=== PATIENT | male | born 1990 | race African-American/Black ===

== ENCOUNTER 2022-01-29 04:32 | Inpatient (IN) | payer OTHER, SELFPAY ==
[2022-01-29] VITALS (11 sets, daily range): BP systolic 150–190; BP diastolic 71–122; PULSE 53–91; RESP 12–21; TEMP 36.1–37.3; O2SAT 96–100; BMI 37.0
--- NOTE | ~2022-01-29 | CT_ITS ---
EXAMINATION: CT ABDOMEN AND PELVIS WITH CONTRAST CLINICAL INFORMATION: Abdominal pain. EtOH. COMPARISON: CT abdomen pelvis 09/18/2018 TECHNIQUE: Multidetector volumetric images were obtained from the superior aspect of the liver through the pubic symphysis following administration 100 mL of Omnipaque 350 intravenous contrast. Sagittal and coronal reformatted images were obtained on the technologist's workstation. Oral contrast: No This CT examination was performed using dose optimization techniques as appropriate, variously including the following: *Automated exposure control *Adjustment of mA and/or kV according to patient size (this includes techniques or standardized protocols for targeted exams where dose is matched to indication/reason for exam; i.e. extremities or head) *Use of iterative reconstruction technique DLP: 827 mGy-cm FINDINGS: LUNG BASES: The visualized lung bases are unremarkable. LIVER, GALLBLADDER, AND BILIARY TREE: The liver is normal in size, shape, and attenuation. No focal hepatic lesion or biliary ductal dilatation is present. The gallbladder is unremarkable with no evidence of radiopaque gallstones, gallbladder wall thickening, or obvious pericholecystic inflammatory changes. PANCREAS: Diffuse concentric peripancreatic reticulation consistent with acute inflammatory changes is noted with findings extending into the root of the small bowel mesentery. The splenic vein is patent. No discrete peripancreatic fluid collections noted. No pancreatic hemorrhage identified. No dilatation of the main pancreatic duct. Edematous changes extend into the superior margin of the left anterior pararenal space. SPLEEN: Unremarkable. ADRENAL GLANDS: Unremarkable. KIDNEYS AND URETERS: The kidneys are normal in size, shape, and attenuation. No hydronephrosis, hydroureter, or calculi seen. No perinephric stranding. BLADDER: Partially decompressed. No thickening of the urinary bladder is present but is within expected physiologic limits for a contracted urinary bladder. GASTROINTESTINAL TRACT: Mild colonic diverticulosis. Normal appendix. No free intraperitoneal fluid or gas collections. ABDOMINAL WALL: No significant hernia is appreciated. LYMPH NODES: Normal. VASCULAR: Unremarkable. PELVIC VISCERA: Normal appearance of the prostate. OSSEOUS STRUCTURES: Unremarkable. CT/CT abdomen pelvis w IV con IMPRESSION: *Pancreatitis. Diffuse inflammatory changes of the pancreas are present with concentric surrounding peripancreatic inflammatory changes with peripancreatic inflammation extending into the root of the small bowel mesentery and proximal left anterior pararenal space. No evidence of pancreatic hemorrhage or necrosis. No discrete peripancreatic fluid collections. No biliary duct dilatation. Patent portal and main portal veins. *Mild colonic diverticulosis. Fleischner guidelines were followed.
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
[2022-01-29 05:18] LABS: Basophils Percent Auto 0.4 % (0-2); Eosinophils Absolute Auto 0.1 X10*3/uL (0.0-0.4); Eosinophils Percent Auto 2.1 % (0-4); Hematocrit 45.5 % (42.0-52.0); Hemoglobin 15.9 g/dl (14.0-18.0); Imm Gran Abs Auto 0.02 X10*3/uL (0.00-0.03); Imm Gran Pct Auto 0.3 % (0.0-0.4); Lymphocytes Absolute Auto 1.3 X10*3/uL (1.2-4.9); Lymphocytes Percent Auto 19.7 % (20-40); MANUAL DIFF FLAG NO; Mean Corpuscular HGB Conc 34.9 g/dl (31.0-36.0); Mean Corpuscular Hemoglobin 30.8 pg (27.0-33.0); Mean Platelet Volume 11.2 fL (9.4-12.4); Monocytes Absolute Auto 0.4 X10*3/uL (0.1-1.2); Monocytes Percent Auto 6.4 % (2-11); Neutrophils Absolute Auto 4.8 x10*3/uL (2.0-8.3); Neutrophils Percent Auto 71.1 % (45-73); Platelet Count 188 X10*3/uL (160-400); Red Blood Count 5.17 X10*6/uL (4.60-5.80); Red Cell Distribution Width 12.3 % (11.0-16.0); White Blood Count 6.8 X10*3/uL (4.8-10.8)
[2022-01-29] MEDS: Morphine Sulfate 4 MG/ML CARTRIDGE IVPUSH (05:18)
[2022-01-29] MEDS: Lactated Ringers 1,000 ML 999 ML IV (05:18)
[2022-01-29] MEDS: ondansetron HCL 4 MG/2 ML VIAL IVPUSH (05:18)
[2022-01-29 05:25] LABS: COVID-19 Test Negative (Negative); IDNOW Serial# BCCEAD1C
[2022-01-29 05:25] LABS: Prothrombin Time 10.9 SEC (10.0-13.1)
[2022-01-29 05:34] LABS: Alanine Aminotransferase 58 U/L (0-40); Albumin Level 4.7 g/dL (3.5-5.0); Alkaline Phosphatase 46 U/L (39-117); Anion Gap 16 (12-20); Aspartate Amino Transferase 30 U/L (5-37); Bilirubin Direct 0.3 mg/dL (0.0-0.5); Bilirubin Total 0.8 mg/dL (0.0-1.0); Blood Urea Nitrogen 12 mg/dL (9-16); Calcium 9.3 mg/dL (8.4-10.2); Carbon Dioxide 24 mmol/L (22-29); Chloride 100 mmol/L (96-108); Estimated Glomerular Filt Rate > 60; Ethanol < 10 mg/dL; Glucose Random 107 mg/dL (60-115); Lactate Dehydrogenase 220 U/L (118-273); Lipase 209 U/L (8-78); Magnesium 1.8 mg/dL (1.6-2.6); Potassium 4.2 mmol/L (3.3-5.1); Sodium 136 mmol/L (135-145); Total Protein 7.8 g/dL (6.5-8.0)
[2022-01-29 06:05] LABS: Appearance Urine Clear; Color Urine Yellow; Glucose Urine UA Negative (Negative); Leukocyte Esterase Urine Negative (Negative); Nitrite Urine Negative (Negative); PH 5.5 (5.0-9.0); Specific Gravity - Urine >= 1.030 (1.005-1.025); UMIC TRIGGER UACC YES; Urine Blood Trace (Negative); Urine Ketones 15 mg/dL (Negative); Urine Protein Negative (Neg-Trace)
[2022-01-29 06:10] LABS: Bacteria Urine None Seen (None Seen); Hyaline Casts Urine 0-2 /LPF (0-2); Squamous Epithelial Cell Urine 0-2 /HPF (0-2); WBC Urine 0-5 /HPF (0-5)
[2022-01-29 06:13] LABS: Amphetamine Screen Urine Not Detected (Not Detect); Barbiturates, Urine Not Detected (Not Detect); Benzodiazepines Screen Urine Not Detected (Not Detect); Cannabinoid Screen Urine Not Detected (Not Detect); Cocaine Screen Urine Not Detected (Not Detect); Fentanyl, urine Not Detected (Not Detect); Opiate Screen Urine POSITIVE (Not Detect); Phencyclidine Screen Urine Not Detected (Not Detect)
[2022-01-29] MEDS: iohexoL 350 MG/ML 100 ML INFUS..BTL 85 ML IV (06:15)
[2022-01-29] MEDS: HYDROmorphone HCl 1 MG/ML SYRINGE IVPUSH ×4 (06:49→21:23)
--- NOTE | 2022-01-29 07:09 | PC.NURSE ---
patient a/ox4 . pearrla , sclera blood shot . heart rate regular at 70 beats per minute . breathing even and unlabored . lungs clear throughout . skin warm and dry appropriate for ethnicity . abdomen distended , soft . rebound tenderness noted on right flank . positive bowel sounds throughout . patient reports pain level 3 out of 10 . patient is aware of plan of care .
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
[2022-01-29] MEDS: Lactated Ringers 1,000 ML 125 ML IVCONT ×2 (08:47→17:07)
--- NOTE | 2022-01-29 10:44 | PHA.MEDREC ---
Pharmacy Consult ? Medication Reconciliation Pharmacy has completed the medication reconciliation.
--- NOTE | 2022-01-29 11:50 | PC.NURSE ---
Patient reports 8 out of 10 pain level in his right abdomen radiating up his right flank . Medicated with PRN 1 mg Diladed . IVP . patient aware of plan of care .
[2022-01-29] MEDS: Metoprolol Succinate ER 50 MG TAB.ER.24H PO (18:36)
[2022-01-29] MEDS: lisinopriL 20 MG TABLET PO (18:36)
--- NOTE | 2022-01-29 18:38 | PC.NURSE ---
Patient hypertensive at 190/119 , has history takes medication at home . takes metoprolol succinate ER 50 mg and lisinipril [address] . [address] Dr Hyde and obtained and order . Gave meds as prescribed . patient aware of plan of care .
--- NOTE | 2022-01-29 22:00 | PC.NURSE ---
Nurse to nurse report given to LEBRON Miller. Pt being transferred to room 467. Pt aware of plan of care.
[2022-01-30 01:42] VITALS: RESP 18
[2022-01-30] MEDS: Lactated Ringers 1,000 ML 125 ML IVCONT ×3 (01:42→17:45)
[2022-01-30] MEDS: HYDROmorphone HCl 1 MG/ML SYRINGE IVPUSH ×6 (01:42→21:41)
[2022-01-30 05:53] VITALS: BP 174/105; PULSE 75; RESP 18
[2022-01-30 07:12] LABS: Hematocrit 45.8 % (42.0-52.0); Hemoglobin 15.4 g/dl (14.0-18.0); Mean Corpuscular HGB Conc 33.6 g/dl (31.0-36.0); Mean Corpuscular Hemoglobin 30.9 pg (27.0-33.0); Platelet Count 179 X10*3/uL (160-400); Red Blood Count 4.98 X10*6/uL (4.60-5.80); Red Cell Distribution Width 12.6 % (11.0-16.0); White Blood Count 6.6 X10*3/uL (4.8-10.8)
[2022-01-30 07:27] LABS: Anion Gap 15 (12-20); Blood Urea Nitrogen 8 mg/dL (9-16); Calcium 9.1 mg/dL (8.4-10.2); Carbon Dioxide 27 mmol/L (22-29); Chloride 101 mmol/L (96-108); Creatinine Clr Calc Pharmacy 114.2; Estimated Glomerular Filt Rate > 60; Glucose Fasting 110 mg/dL (60-99); Potassium 4.5 mmol/L (3.3-5.1); Sodium 138 mmol/L (135-145)
[2022-01-30 08:00] VITALS: BP 150/85; PULSE 79; RESP 18; TEMP 36.7; O2SAT 98
--- NOTE | 2022-01-30 08:52 | HO.PM.IMPN ---
Subjective Subjective Date of Service: 01/30/22 Interval History: cc: abd pain interval history:didnt tolerate clears Cardiovascular Cardiovascular: Reports no additional cardiovascular complaints Respiratory Respiratory: Reports no additional respiratory complaints Physical Exam Vital Signs: Vital Signs: Last Vital Signs Temp 98.0 F 01/30/22 08:00 Pulse 79 01/30/22 08:00 Resp 18 01/30/22 08:00 BP 150/85 H 01/30/22 08:00 Pulse Ox 98 01/30/22 08:00 O2 Del Method 01/30/22 08:00 BMI result Body Mass Index 37.0 General: AO X 3, no acute distress Resp: CTA bilateral, no accessory muscles used CVS: S1,S2,RRR GI: soft, tender, non distended Neuro: motor grossly intact, alert Psych: appropriate affect, appropriate insight Objective Data Active Medications Enoxaparin Sodium (Enoxaparin Sodium 40 Mg/0.4 Ml Syringe) 40 mg SUBCUT Q24H EDUARDA Hydromorphone HCl (Hydromorphone Hcl 1 Mg/Ml Syringe) 1 mg IVPUSH Q4H PRN; Protocol PRN Reason: moderate pain Last Admin: 01/30/22 05:49 Dose: 1 mg Documented By: ROS Lactated Ringer's (Lr) 1,000 mls @ 125 mls/hr IVCONT .Q8H EDUARDA Last Admin: 01/30/22 01:42 Dose: 125 mls/hr Documented By: ROS Lisinopril (Lisinopril 10 Mg Tablet) 10 mg PO DAILY [facility]; Protocol Metoprolol Succinate (Metoprolol Succinate Er 50 Mg Tab.Er.24h) 50 mg PO DAILY EDUARDA; Protocol Pharmacy Consult (Consult Rx Perform Med Rec) 1 each MISCELLANE ONCE PRN PRN Reason: Consult order Sodium Chloride (0.9 % Sodium Chloride Flush 3 Ml Syringe) 3 ml IVFLUSH QSHIFT EDUARDA Last Admin: 01/30/22 07:22 Dose: Not Given Documented By: DAVID Non-Admin Reason: IV Running Labs CBC & Chem 7: 01/30/22 06:39 01/30/22 06:39 Labs: Laboratory Results - last 24 hr 01/30/22 01/30/22 06:39 06:39 MCV 92.0 MCH 30.9 MCHC 33.6 RDW 12.6 Plt Count 179 MPV 12.0 Absolute Nucleated RBC 0.000 Nucleated RBC % (auto) 0.0 Anion Gap 15 Estim Creat Clear Calc 114.2 Estimated GFR > 60 Fasting Glucose 110 H Calcium 9.1 Assessment and Plan (1) Acute pancreatitis: Status: Acute Plan 31M PMH etoh use, pancreatitis, obesity, HTN, moderate persistent asthma, presented with abd pain acute alcohol pancreatitis not tolerating clear liquids yet, advance when tolerated LR at 125cc/hr pain control obesity wegiht loss recommended moderate persistent asthma bronchodilators as needed HTN toprol, lisinopril dvt prophylaxis? - lovenox full code reason for continued hospitalization:not tolerating po Time Spent With Patient Time: Total time managing care of this patient today ____ minutes. Quality Stroke Does the patient have a stroke diagnosis?: No VTE Prior VTE?: No VTE Risk Level:: Medical - moderate - high VTE Device Contraindication: Treatment Not Indicated VTE Drug Contraindication: N/A - Med Ordered
[2022-01-30] MEDS: lisinopriL 10 MG TABLET PO (10:15)
[2022-01-30] MEDS: Enoxaparin Sodium 40 MG/0.4 ML SYRINGE SUBCUT (10:15)
[2022-01-30] MEDS: Metoprolol Succinate ER 50 MG TAB.ER.24H PO (10:16)
--- NOTE | 2022-01-30 11:28 | MHC.CM.PN ---
Addendum entered by Jess Dodson 01/30/22 12:10: CORRECTION: PT WOULD LIKE A PCP APPT AT [facility] IN [place] Original Note: PT REPORTS HE LIVES WITH HIS S/O AND IS INDEPENDENT WITH CARE PT USES A NEBULIZER FOR DME AND HAS NO SERVICES PT COMPLETED A HCP TODAY NAMING HIS BROTHER, MAGGI, HIS AGENT PT IS NOT COVID VAX PT HAS NO PCP AND ASKS IF HE COULD BE CONNECTED WITH ONE TASK SENT TO [facility] TO REQUEST APPT, HE WOULD LIKE TO RETURN TO [facility] IN [place] OBSERVATION NOTICE DELIVERED CURRENT DC PLAN IS HOME WITH NO SERVICES PT TO ARRANGE TRANSPORT
[2022-01-30] MEDS: Albuterol/Iprat 2.5/0.5MG 3 ML AMPUL.NEB INHALE (14:36)
[2022-01-30 14:39] VITALS: PULSE 75; RESP 18; O2SAT 97
[2022-01-30 15:48] VITALS: BP 160/82; PULSE 91; RESP 17; TEMP 36.7; O2SAT 98
[2022-01-30 22:46] VITALS: BP 143/77; PULSE 54; RESP 20; TEMP 36.7; O2SAT 96
[2022-01-31] VITALS (9 sets, daily range): BP systolic 140–168; BP diastolic 75–97; PULSE 54–99; RESP 16–20; TEMP 36.9–37.6; O2SAT 96–98
[2022-01-31] MEDS: Lactated Ringers 1,000 ML 125 ML IVCONT ×2 (00:38→08:36)
[2022-01-31] MEDS: HYDROmorphone HCl 1 MG/ML SYRINGE IVPUSH ×7 (01:34→21:17)
[2022-01-31] MEDS: Albuterol/Iprat 2.5/0.5MG 3 ML AMPUL.NEB INHALE ×4 (01:46→21:37)
[2022-01-31 08:02] LABS: Hematocrit 40.3 % (42.0-52.0); Hemoglobin 13.9 g/dl (14.0-18.0); Mean Corpuscular HGB Conc 34.5 g/dl (31.0-36.0); Mean Corpuscular Hemoglobin 31.7 pg (27.0-33.0); Mean Corpuscular Volume 91.8 fL (80.0-98.0); Mean Platelet Volume 12.3 fL (9.4-12.4); Platelet Count 166 X10*3/uL (160-400); Red Blood Count 4.39 X10*6/uL (4.60-5.80); Red Cell Distribution Width 12.4 % (11.0-16.0); White Blood Count 4.7 X10*3/uL (4.8-10.8)
[2022-01-31 08:05] LABS: Anion Gap 14 (12-20); Blood Urea Nitrogen 7 mg/dL (9-16); Calcium 8.8 mg/dL (8.4-10.2); Carbon Dioxide 26 mmol/L (22-29); Chloride 101 mmol/L (96-108); Creatinine Clr Calc Pharmacy 129.8; Estimated Glomerular Filt Rate > 60; Glucose Fasting 93 mg/dL (60-99); Sodium 137 mmol/L (135-145)
[2022-01-31] MEDS: lisinopriL 10 MG TABLET PO (08:34)
[2022-01-31] MEDS: Metoprolol Succinate ER 50 MG TAB.ER.24H PO (08:34)
[2022-01-31] MEDS: Enoxaparin Sodium 40 MG/0.4 ML SYRINGE SUBCUT (08:34)
[2022-01-31] MEDS: 0.9 % Sodium Chloride Flush 3 ML SYRINGE IVFLUSH ×2 (08:35→21:18)
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
[2022-01-31] MEDS: Lactated Ringers 1,000 ML 80 ML IVCONT (16:53)
[2022-02-01] VITALS (9 sets, daily range): BP systolic 159–179; BP diastolic 94–109; PULSE 76–105; RESP 16–20; TEMP 36.1–37.2; O2SAT 95–99
[2022-02-01] MEDS: HYDROmorphone HCl 1 MG/ML SYRINGE IVPUSH ×8 (00:18→22:42)
[2022-02-01] MEDS: Albuterol/Iprat 2.5/0.5MG 3 ML AMPUL.NEB INHALE ×4 (03:09→22:07)
[2022-02-01] MEDS: Lactated Ringers 1,000 ML 80 ML IVCONT ×2 (06:26→18:34)
[2022-02-01 07:12] LABS: Hematocrit 37.4 % (42.0-52.0); Hemoglobin 12.7 g/dl (14.0-18.0); Mean Corpuscular Hemoglobin 30.9 pg (27.0-33.0); Mean Platelet Volume 11.7 fL (9.4-12.4); Platelet Count 156 X10*3/uL (160-400); Red Blood Count 4.11 X10*6/uL (4.60-5.80); Red Cell Distribution Width 12.2 % (11.0-16.0); White Blood Count 3.9 X10*3/uL (4.8-10.8)
[2022-02-01 07:23] LABS: Anion Gap 13 (12-20); Blood Urea Nitrogen 6 mg/dL (9-16); Calcium 8.9 mg/dL (8.4-10.2); Carbon Dioxide 26 mmol/L (22-29); Chloride 102 mmol/L (96-108); Estimated Glomerular Filt Rate > 60; Glucose Fasting 98 mg/dL (60-99); Potassium 3.9 mmol/L (3.3-5.1); Sodium 137 mmol/L (135-145)
--- NOTE | 2022-02-01 08:35 | HO.PM.IMPN ---
Subjective Subjective Date of Service: 02/01/22 Interval History: cc: abd pain interval history:some improvement, will advance to solids Cardiovascular Cardiovascular: Reports no additional cardiovascular complaints Respiratory Respiratory: Reports no additional respiratory complaints Physical Exam Vital Signs: Vital Signs: Last Vital Signs Temp 98.9 F 02/01/22 07:34 Pulse 76 02/01/22 07:34 Resp 20 02/01/22 07:34 BP 170/97 H 02/01/22 07:34 Pulse Ox 98 02/01/22 07:34 O2 Del Method 02/01/22 07:34 BMI result Body Mass Index 37.0 General: AO X 3, no acute distress Resp: CTA bilateral, no accessory muscles used CVS: S1,S2,RRR GI: soft, tender, non distended Neuro: motor grossly intact, alert Psych: appropriate affect, appropriate insight Objective Data Active Medications Albuterol/Ipratropium (Albuterol/Iprat 2.5/0.5mg 3 Ml Ampul.Neb) 3 ml INHALE RQ4H PRN PRN Reason: sob Last Admin: 02/01/22 03:09 Dose: 3 ml Documented By: BAILEY Enoxaparin Sodium (Enoxaparin Sodium 40 Mg/0.4 Ml Syringe) 40 mg SUBCUT Q24H EDUARDA Last Admin: 01/31/22 08:34 Dose: 40 mg Documented By: DAVID Hydromorphone HCl (Hydromorphone Hcl 1 Mg/Ml Syringe) 1 mg IVPUSH Q3H PRN; Protocol PRN Reason: moderate pain Last Admin: 02/01/22 06:21 Dose: 1 mg Documented By: SOLOMON Lactated Ringer's (Lr) 1,000 mls @ 80 mls/hr IVCONT .[id number] EDUARDA Last Admin: 02/01/22 06:26 Dose: 80 mls/hr Documented By: SOLOMON Lisinopril (Lisinopril 10 Mg Tablet) 10 mg PO DAILY [facility]; Protocol Last Admin: 01/31/22 08:34 Dose: 10 mg Documented By: DAVID Metoprolol Succinate (Metoprolol Succinate Er 50 Mg Tab.Er.24h) 50 mg PO DAILY [facility]; Protocol Last Admin: 01/31/22 08:34 Dose: 50 mg Documented By: DAVID Pharmacy Consult (Consult Rx Perform Med Rec) 1 each MISCELLANE ONCE PRN PRN Reason: Consult order Sodium Chloride (0.9 % Sodium Chloride Flush 3 Ml Syringe) 3 ml IVFLUSH QSHIFT [facility] Last Admin: 01/31/22 21:18 Dose: 3 ml Documented By: SOLOMON Labs CBC & Chem 7: 02/01/22 06:52 02/01/22 06:52 Labs: Laboratory Results - last 24 hr 02/01/22 02/01/22 06:52 06:52 MCV 91.0 MCH 30.9 MCHC 34.0 RDW 12.2 Plt Count 156 L MPV 11.7 Absolute Nucleated RBC 0.000 Nucleated RBC % (auto) 0.0 Anion Gap 13 Estim Creat Clear Calc 140.0 Estimated GFR > 60 Fasting Glucose 98 Calcium 8.9 Assessment and Plan (1) Acute pancreatitis: Status: Acute Plan 31M PMH etoh use, pancreatitis, obesity, HTN, moderate persistent asthma, presented with abd pain acute alcohol pancreatitis advanced to solids continue ivf pain control obesity weight loss recommended moderate persistent asthma bronchodilators as needed HTN toprol, lisinopril dvt prophylaxis? - lovenox full code reason for continued hospitalization:awaiting [place] of po Time Spent With Patient Time: Total time managing care of this patient today ____ minutes. Quality Stroke Does the patient have a stroke diagnosis?: No VTE Prior VTE?: No VTE Risk Level:: Medical - moderate - high VTE Device Contraindication: Treatment Not Indicated VTE Drug Contraindication: N/A - Med Ordered
[2022-02-01] MEDS: 0.9 % Sodium Chloride Flush 3 ML SYRINGE IVFLUSH ×3 (08:40→19:32)
[2022-02-01] MEDS: lisinopriL 10 MG TABLET PO (08:40)
[2022-02-01] MEDS: Metoprolol Succinate ER 50 MG TAB.ER.24H PO (08:40)
[2022-02-01] MEDS: Enoxaparin Sodium 40 MG/0.4 ML SYRINGE SUBCUT (08:41)
[2022-02-02] MEDS: HYDROmorphone HCl 1 MG/ML SYRINGE IVPUSH ×7 (01:46→21:41)
[2022-02-02] MEDS: Lactated Ringers 1,000 ML 80 ML IVCONT (04:55)
[2022-02-02 04:57] VITALS: PULSE 88; RESP 16; O2SAT 98
[2022-02-02] MEDS: Albuterol/Iprat 2.5/0.5MG 3 ML AMPUL.NEB INHALE ×2 (04:57→09:45)
[2022-02-02 08:00] VITALS: BP 204/120; PULSE 86; RESP 18; TEMP 36.3; O2SAT 96
[2022-02-02] MEDS: Enoxaparin Sodium 40 MG/0.4 ML SYRINGE SUBCUT (08:34)
[2022-02-02] MEDS: lisinopriL 10 MG TABLET PO ×2 (08:35→15:44)
[2022-02-02] MEDS: Metoprolol Succinate ER 50 MG TAB.ER.24H PO (08:35)
[2022-02-02] MEDS: 0.9 % Sodium Chloride Flush 3 ML SYRINGE IVFLUSH ×2 (08:36→15:49)
[2022-02-02] MEDS: Fluticasone/Vilanterol 100/25 BLST.W.DEV 1 PUFF INHALE (09:47)
[2022-02-02 09:48] VITALS: PULSE 92; RESP 15; O2SAT 98
--- NOTE | 2022-02-02 10:31 | HO.PM.IMPN ---
Subjective Subjective Date of Service: 02/02/22 Interval History: cc: abd pain interval history: advanced to solids yesterday but still minimally tolerating Cardiovascular Cardiovascular: Reports no additional cardiovascular complaints Respiratory Respiratory: Reports no additional respiratory complaints Physical Exam Vital Signs: Vital Signs: Last Vital Signs Temp 97.3 F 02/02/22 08:00 Pulse 92 02/02/22 09:48 Resp 15 02/02/22 09:48 BP 204/120 H 02/02/22 08:00 Pulse Ox 96 02/02/22 08:00 O2 Del Method 02/02/22 08:00 BMI result Body Mass Index 37.0 General: AO X 3, no acute distress Resp: CTA bilateral, no accessory muscles used CVS: S1,S2,RRR GI: soft, tender, non distended Neuro: motor grossly intact, alert Psych: appropriate affect, appropriate insight Objective Data Active Medications Albuterol/Ipratropium (Albuterol/Iprat 2.5/0.5mg 3 Ml Ampul.Neb) 3 ml INHALE RQ4H PRN PRN Reason: sob Last Admin: 02/02/22 09:45 Dose: 3 ml Documented By: LIAM Enoxaparin Sodium (Enoxaparin Sodium 40 Mg/0.4 Ml Syringe) 40 mg SUBCUT Q24H EDUARDA Last Admin: 02/02/22 08:34 Dose: 40 mg Documented By: JOSE C Fluticasone/Vilanterol (Fluticasone/Vilanterol 100/25 Blst.W.Dev) 1 puff INHALE ONCE EDUARDA Last Admin: 02/02/22 09:47 Dose: 1 puff Documented By: LIAM Hydromorphone HCl (Hydromorphone Hcl 1 Mg/Ml Syringe) 1 mg IVPUSH Q3H PRN; Protocol PRN Reason: moderate pain Last Admin: 02/02/22 08:35 Dose: 1 mg Documented By: JOSE C Lisinopril (Lisinopril 10 Mg Tablet) 10 mg PO DAILY [facility]; Protocol Last Admin: 02/02/22 08:35 Dose: 10 mg Documented By: JOSE C Metoprolol Succinate (Metoprolol Succinate Er 50 Mg Tab.Er.24h) 50 mg PO DAILY [facility]; Protocol Last Admin: 02/02/22 08:35 Dose: 50 mg Documented By: JOSE C Pharmacy Consult (Consult Rx Perform Med Rec) 1 each MISCELLANE ONCE PRN PRN Reason: Consult order Sodium Chloride (0.9 % Sodium Chloride Flush 3 Ml Syringe) 3 ml IVFLUSH QSHIFT EDUARDA Last Admin: 02/02/22 08:36 Dose: 3 ml Documented By: JOSE C Labs CBC & Chem 7: 02/01/22 06:52 02/01/22 06:52 Assessment and Plan (1) Acute pancreatitis: Status: Acute Plan 31M PMH etoh use, pancreatitis, obesity, HTN, moderate persistent asthma, presented with abd pain acute alcohol pancreatitis advanced to solids, but not fully tolerating pain control obesity weight loss recommended moderate persistent asthma bronchodilators as needed HTN toprol, lisinopril dvt prophylaxis? - lovenox full code reason for continued hospitalization:awaiting [place] of po Time Spent With Patient Time: Total time managing care of this patient today ____ minutes. Quality Stroke Does the patient have a stroke diagnosis?: No VTE Prior VTE?: No VTE Risk Level:: Medical - moderate - high VTE Device Contraindication: Treatment Not Indicated VTE Drug Contraindication: N/A - Med Ordered
--- NOTE | 2022-02-02 11:16 | MHC.CM.PN ---
Per ROUNDS discussion, Patient is not tolerating solids yet and he is not yet medically cleared for dc. Home is the goal and CM will continue to follow.
[2022-02-02 12:12] VITALS: BP 160/56; PULSE 91; RESP 18; TEMP 36.3; O2SAT 98
[2022-02-02 15:21] VITALS: BP 178/113; PULSE 83; RESP 16; TEMP 36.4; O2SAT 96
[2022-02-02 23:54] VITALS: BP 153/75; TEMP 37; O2SAT 97
[2022-02-03] MEDS: HYDROmorphone HCl 1 MG/ML SYRINGE IVPUSH ×4 (01:12→11:38)
[2022-02-03] MEDS: Throat Lozenge, Medicated LOZENGE 1 LOZENGE MUCOUS MEM ×3 (01:12→07:49)
--- NOTE | 2022-02-03 03:40 | MHC.PIE ---
P.DIFFICULTY SWALLOWING I.PT STATES HE FEELS LIKE HE HAS DIFFICULTY SWALLOWING/SORE THROAT.STATES HE FEELS LIKE HE HAS SOME SECRETIONS.DR CALL UPDATED.ORDER FOR PRN CEPACOL LOZENGES GIVEN AND ORDER FOR BEDSIDE SWALLOW EVAL AND SPEECH EVAL GIVEN. E.BEDSIDE NURSING SWALLOW EVAL DONE.NO DIFFICULTY SWALLOWING NOTED.NO COUGH NOTED.PT ABLE TO SWALLOW LIQUIDS.UPDATED THAT SPEECH WILL FOLLOW UP.CONT TO MONITOR.
[2022-02-03 06:47] LABS: Hematocrit 41.3 % (42.0-52.0); Hemoglobin 14.2 g/dl (14.0-18.0); Mean Corpuscular HGB Conc 34.4 g/dl (31.0-36.0); Mean Corpuscular Hemoglobin 31.2 pg (27.0-33.0); Mean Corpuscular Volume 90.8 fL (80.0-98.0); Mean Platelet Volume 11.5 fL (9.4-12.4); Platelet Count 198 X10*3/uL (160-400); Red Blood Count 4.55 X10*6/uL (4.60-5.80); Red Cell Distribution Width 12.2 % (11.0-16.0); White Blood Count 4.3 X10*3/uL (4.8-10.8)
[2022-02-03 07:15] LABS: Anion Gap 14 (12-20); Blood Urea Nitrogen 8 mg/dL (9-16); Calcium 9.6 mg/dL (8.4-10.2); Carbon Dioxide 24 mmol/L (22-29); Chloride 101 mmol/L (96-108); Creatinine Clr Calc Pharmacy 134.7; Estimated Glomerular Filt Rate > 60; Glucose Fasting 92 mg/dL (60-99); Potassium 4.1 mmol/L (3.3-5.1); Sodium 135 mmol/L (135-145)
[2022-02-03] MEDS: Fluticasone/Vilanterol 100/25 BLST.W.DEV 1 PUFF INHALE (07:43)
[2022-02-03] MEDS: Albuterol/Iprat 2.5/0.5MG 3 ML AMPUL.NEB INHALE (07:43)
[2022-02-03 07:44] VITALS: PULSE 66; RESP 16; O2SAT 99
[2022-02-03 08:00] VITALS: BP 152/80; PULSE 86; PULSE 87; RESP 20; TEMP 36.2; O2SAT 97
[2022-02-03] MEDS: Enoxaparin Sodium 40 MG/0.4 ML SYRINGE SUBCUT (08:33)
[2022-02-03] MEDS: Metoprolol Succinate ER 50 MG TAB.ER.24H PO (08:33)
[2022-02-03] MEDS: lisinopriL 20 MG TABLET PO (08:33)
[2022-02-03] MEDS: 0.9 % Sodium Chloride Flush 3 ML SYRINGE IVFLUSH ×2 (08:34)
[2022-02-03 08:48] VITALS: RESP 16
--- NOTE | 2022-02-03 10:23 | PM.DS ---
DS: Providers Provider Date of Service: 02/03/22 Date of admission: 01/29/22 08:24 Date of discharge: 02/03/22 Primary care physician: Unknown Physician Attending physician on discharge: [facility] Discharging clinician: Becky Maier DS: Diagnosis Discharge Diagnosis (1) Acute pancreatitis: Status: Acute DS: Summary Hospital Course Hospital Course: From H&P on day of admission 31M PMH etoh use, pancreatitis, obesity, HTN, moderate persistent asthma, presented with abd pain. patient states abd pain began 2 days ptp, midepigastric, radiating to back, 10/10, worse with eating, associated with watery diarrhea, unable to tolerate po solid or liquid, nasuea without vomitting. in ED lipase about 200, CT abd c/w pancreatitis, billiary system unremarkable. Acute pancreatitis related to alcohol use patient was admitted to the hospital for supportive care. He was made NPO and treated with IV fluid and pain medication. His abdominal pain improved and his diet was gradually advanced and he is currently tolerating a regular diet. He did report globus sensation in his throat, he was evaluated by speech therapy and had a normal swallow evaluation. Patient is encouraged to abstain from drinking alcohol. Uncontrolled hypertension Blood pressure was elevated, patient's dose of lisinopril was increased from 10 mg daily to 20 mg daily. Recommend outpatient follow-up with PCP for close blood pressure monitoring. Time Spent with Patient Time attestation: Total time managing care of this patient today ____ minutes. Discharge coordination time: Greater than 30 minutes Quality: Safe Use of Opioids Does Pt have an Active Cancer Diagnosis on the Problem List?: No Quality: Stroke Does the patient have a stroke diagnosis?: No Physical Exam Vital Signs: Vital Signs: Last Vital Signs Temp 97.2 F 02/03/22 08:00 Pulse 86 02/03/22 08:00 Resp 16 02/03/22 08:48 BP 152/80 H 02/03/22 08:00 Pulse Ox 97 02/03/22 08:00 O2 Del Method 02/03/22 08:00 BMI result Body Mass Index 37.0 Const: General: cooperative, comfortable, no acute distress, alert and awake Nutritional Appearance: overweight Resp: Effort & Inspection: normal respiratory effort and able to speak in complete sentences Auscultation: clear to auscultation bilaterally Cardio: Rate: regular rate Heart sounds: S1 normal heart sound present and S2 normal heart sound present GI: Inspection: No distended Palpation (GI): Soft to palpation and nontender Neuro: General: CN's II-XI intact bilaterally Extrem: General: Yes no pedal edema DS: Data Data Completed and Pending Labs on day of discharge: Laboratory Results - last 24 hr 02/03/22 02/03/22 06:28 06:28 WBC 4.3 L RBC 4.55 L Hgb 14.2 Hct 41.3 L MCV 90.8 MCH 31.2 MCHC 34.4 RDW 12.2 Plt Count 198 D MPV 11.5 Absolute Nucleated RBC 0.000 Nucleated RBC % (auto) 0.0 Sodium 135 Potassium 4.1 Chloride 101 Carbon Dioxide 24 Anion Gap 14 BUN 8 L Creatinine 1.06 Estim Creat Clear Calc 134.7 Estimated GFR > 60 Fasting Glucose 92 Calcium 9.6 D Discharge Plan Discharge Patient Disposition: Home, Self-Care Discharge Diagnosis: acute pancreatitis Referrals: Anabel Cortes MD [Physician] - 02/09/22 10:30 am (You have follow up appointment scheduled. if you need to reschedule please call the office. ) Discharge Medications: New lisinopril 20 mg Tablet 20 mg PO DAILY 30 Days Qty: 30 0RF Protocol: Hold for SBP< HOLD for SBP < : 90 Continued metoprolol succinate 50 mg tablet extended release 24 hr 1 tab PO DAILY budesonide-formoterol [Symbicort] 80-4.5 mcg/actuation HFA aerosol inhaler 2 inh INHALATION BID Discontinued lisinopril 10 mg tablet 1 tab PO DAILY Discharge Orders: Discharge Order (Routine); Ordered 02/03/22 Ordered By: Becky Maier Activity on Discharge: As tolerated Stand Alone Forms: Patient Portal Discharge page Care Plan Goals: see below Health Concerns: acute pancreatitis related to alcohol use uncontrolled blood pressure Plan of Treatment: Recommend to stop drinking alcohol your dose of lisinopril was increased to 20 mg daily, please take new dose Call to Schedule follow-up with PCP for close blood pressure monitoring Speech evaluation was normal. If you continue to have globus sensation in throat, recommend outpatient follow-up with PCP Assessment: see discharge summary Discharge Date/Time: 02/03/22 13:20
--- NOTE | 2022-02-03 11:01 | MHC.SL.SWA ---
Speech Pathologist Impression: Risk of Aspiration Due to: Dysphasia Diet Status: Recommend referral to ENT as outpatient if issue persists. Liquid Consistency and Strategies for Safe Swallow: Liquid Intake Recommendation: Thin Liquid Intake Strategies: Unrestricted Solid Food Consistency: Dietary Recommendations: Regular Additional Modifications to Solid Foods: Oral Medication Intake: Whole with Liquid Please contact the pharmacy regarding appropriate crushable or liquid drug formulations that are available whenever modified delivery is recommended. Compensatory Strategies and Precautions to be Taken for Safe Swallow: Sitting Upright (90 deg) Supervision While Eating and Drinking for Safe Swallow: None Needed Foods to Avoid: n/a Swallowing Recommended Treatments: Recommendation for Speech: NA:Typical Evaluation Comment: Patient presents with all aspects of oral motor function and all aspects of swallow function WFL. Primary issue is mild persistent Globus sensation on the left side, where indicated near upper esophageal sphincter. This sensation decreased when eating puree, but was present on all other consistencies. Recommend patient be referred as outpatient for an ENT evaluation/stroboscopy to further assess if the issue persists. RONI LAZCANO notified of recommendation by secure text, RN in person. No further drapery operator services indicated. Frequency/Duration: Date Range for Service Req: Timeline to reassess: Director Online Marketing Clinican/Clinical Fellow: No Supervisory Statement: I have reviewed and agree with the student/clinical fellow's documentation: N/A Speech Language Pathologist: Sallie Marie M.A., CCC-[employer] OUTSIDE DI[employer]ETER
--- NOTE | 2022-02-03 11:43 | MHC.CM.PN ---
DP: PT IS MEDICALLY CLEARED FOR DC HOME, NO SERVICES. PT HAS OWN RIDE. RN AWARE.
[2022-02-03 12:00] VITALS: BP 148/64; PULSE 76; RESP 16; TEMP 36.3; O2SAT 96
== END 2022-02-03 13:20 | disposition home or self-care (01) | DRG 282 ==
LOC: HO.ED 07:48 → HO.EDOVER 08:31 → HO.IMC 19:20
PROVIDERS: Emergency Medicine; Admitting Provider Internal Medicine; Emergency Provider Emergency Medicine; PCP Internal Medicine; Visit Provider Physician Assistant Medical
DX: K85.20 Alcohol induced acute pancreatitis without necrosis or infection (principal); E66.9 Obesity, unspecified; I10 Essential (primary) hypertension; J45.40 Moderate persistent asthma, uncomplicated; F45.8 Other somatoform disorders; Z68.37 Body mass index [BMI] 37.0-37.9, adult; Z20.822 Contact with and (suspected) exposure to COVID-19; Z87.891 Personal history of nicotine dependence; Z79.899 Other long term (current) drug therapy
CPT/HCPCS: 36415; 74177; 80048; 80076; 80307; 81001; 82077; 83615; 83690; 83735; 85025; 85027; 85610; 87635; 92610; 94640; 96365; 96366; 96372; 96375; 96376; 99219; 99285; J1170; J1650; J2270; J2405; Q9967

== ENCOUNTER 2022-06-04 17:21 | Emergency (ER) | payer OTHER, SELFPAY ==
--- NOTE | ~2022-06-04 | CT_ITS ---
EXAMINATION: CT ABDOMEN AND PELVIS WITH CONTRAST CLINICAL INFORMATION: Abdominal pain, history of abdominal surgeries. COMPARISON: CT abdomen/pelvis 01/29/2022. TECHNIQUE: Multidetector volumetric images were obtained from the superior aspect of the liver through the pubic symphysis following administration 85 mL of Omnipaque 350 intravenous contrast. Sagittal and coronal reformatted images were obtained on the technologist's workstation. Oral contrast: No This CT examination was performed using dose optimization techniques as appropriate, variously including the following: *Automated exposure control *Adjustment of mA and/or kV according to patient size (this includes techniques or standardized protocols for targeted exams where dose is matched to indication/reason for exam; i.e. extremities or head) *Use of iterative reconstruction technique DLP: 934 mGy-cm FINDINGS: LUNG BASES: Evaluation of pulmonary nodules and parenchymal details is very limited due to respiratory motion. No focal consolidation or pleural effusion. LIVER, GALLBLADDER, AND BILIARY TREE: The liver is enlarged measuring 19.3 cm craniocaudally but is otherwise normal in shape and attenuation. No focal liver lesion. No calcified gallbladder calculi. No significant bladder wall thickening or pericholecystic inflammatory changes to suspect acute cholecystitis. No biliary ductal dilatation. PANCREAS: Diffuse peripancreatic fat stranding and free fluid. No evidence of parenchymal necrosis or organized peripancreatic collection. SPLEEN: Unremarkable. ADRENAL GLANDS: Unremarkable. KIDNEYS AND URETERS: The kidneys are normal in size, shape, and attenuation. No hydronephrosis, hydroureter, or calculi seen. No perinephric stranding. BLADDER: Unremarkable. GASTROINTESTINAL TRACT: The small and large bowel are unremarkable. The appendix is unremarkable. ABDOMINAL WALL: No significant hernia is appreciated. LYMPH NODES: No lymphadenopathy. VASCULAR: Normal caliber of the abdominal aorta. The main portal vein and SMV are patent. PELVIC VISCERA: Unremarkable. OSSEOUS STRUCTURES: No acute or aggressive appearing osseous abnormalities. Unchanged mild increased sclerosis of S1, likely degenerative. CT/CT abdomen pelvis w IV con IMPRESSION: 1. Findings are most consistent with acute edematous interstitial pancreatitis. 2. Nonspecific hepatomegaly.
[2022-06-04 17:51] VITALS: BP 170/98; PULSE 85; RESP 18; TEMP 36.2; O2SAT 98; BMI 39.6
[2022-06-04 19:04] LABS: MANUAL DIFF FLAG NO
[2022-06-04 19:12] LABS: Basophils Percent Auto 0.8 % (0-2); Eosinophils Absolute Auto 0.2 X10*3/uL (0.0-0.4); Eosinophils Percent Auto 3.5 % (0-4); Hematocrit 43.6 % (42.0-52.0); Hemoglobin 15.1 g/dl (14.0-18.0); Imm Gran Abs Auto 0.02 X10*3/uL (0.00-0.03); Imm Gran Pct Auto 0.4 % (0.0-0.4); Lymphocytes Absolute Auto 1.4 X10*3/uL (1.2-4.9); Mean Corpuscular HGB Conc 34.6 g/dl (31.0-36.0); Mean Corpuscular Hemoglobin 31.1 pg (27.0-33.0); Mean Corpuscular Volume 89.7 fL (80.0-98.0); Mean Platelet Volume 11.7 fL (9.4-12.4); Monocytes Absolute Auto 0.4 X10*3/uL (0.1-1.2); Monocytes Percent Auto 7.6 % (2-11); Neutrophils Absolute Auto 3.1 x10*3/uL (2.0-8.3); Neutrophils Percent Auto 60.7 % (45-73); Platelet Count 170 X10*3/uL (160-400); Red Blood Count 4.86 X10*6/uL (4.60-5.80); Red Cell Distribution Width 12.3 % (11.0-16.0); White Blood Count 5.2 X10*3/uL (4.8-10.8)
[2022-06-04 19:17] LABS: Anion Gap 14 (12-20); Blood Urea Nitrogen 17 mg/dL (9-16); Calcium 9.6 mg/dL (8.4-10.2); Carbon Dioxide 26 mmol/L (22-29); Chloride 102 mmol/L (96-108); Creatinine Clr Calc Pharmacy 113.7; Estimated Glomerular Filt Rate > 60; Glucose Random 121 mg/dL (60-115); Sodium 138 mmol/L (135-145)
[2022-06-04 19:23] LABS: COVID-19 Test Negative (Negative); IDNOW Serial# 08D9AD1C
[2022-06-04 19:35] VITALS: BP 180/113; PULSE 84; RESP 18; TEMP 36.9; O2SAT 96
--- NOTE | 2022-06-04 19:43 | PC.NURSE ---
Pt presents with right upper abdominal pain starting on Monday. Pt also reports diarrhea since Monday, stating he saw some blood in the diarrhea as well. Pt states pain is 7/10. Pt denies nausea/vomiting. Pt also reported he has been drinking every day for the past 3 weeks and would like to seek help for that. Pt is A&Ox4, GCS 15, steady gait and balance.
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
--- NOTE | 2022-06-04 20:23 | PC.NURSE ---
est IV 20g in L forearm w/ securement device and tegaderm
[2022-06-04] MEDS: HYDROmorphone HCl 2 MG/ML VIAL IVPUSH (20:24)
[2022-06-04] MEDS: iohexoL 350 MG/ML 100 ML INFUS..BTL IV (20:43)
[2022-06-04 21:07] VITALS: BP 165/95; PULSE 91; RESP 19; TEMP 37; O2SAT 97
[2022-06-04 21:21] LABS: Lipase 71 U/L (8-78)
--- NOTE | 2022-06-04 21:34 | PC.NURSE ---
Pt requesting metoprolol tartrate 50 and lisinopril
[2022-06-04] MEDS: 0.9 % Sodium Chloride 1,000 ML 999 ML IV (21:36)
== END 2022-06-04 22:16 | disposition home or self-care (01) ==
PROVIDERS: Physician Assistant Medical; Emergency Provider Emergency Medicine
DX: K85.90 Acute pancreatitis without necrosis or infection, unspecified (principal); K86.1 Other chronic pancreatitis; Z20.822 Contact with and (suspected) exposure to COVID-19; I10 Essential (primary) hypertension; F10.90 Alcohol use, unspecified, uncomplicated; Y90.9 Presence of alcohol in blood, level not specified; Z79.899 Other long term (current) drug therapy
CPT/HCPCS: 74177; 80048; 83690; 85025; 87635; 96361; 96374; 99284; 99285; J1170; Q9967

== ENCOUNTER 2022-06-06 18:52 | Emergency (ER) | payer OTHER, SELFPAY ==
--- NOTE | 2022-06-06 | ECG_ITS ---
Test Reason : CHEST PAIN Blood Pressure : / mmHG Vent. Rate : 071 BPM Atrial Rate : 071 BPM P-R Int : 188 ms QRS Dur : 094 ms QT Int : 372 ms P-R-T Axes : 034 004 028 degrees QTc Int : 404 ms Normal sinus rhythm Normal ECG When compared with ECG of 02-JAN-2019 10:01, No significant change was found Referred By: Generic ED Physician Electronically Signed By:PASTOR ST
[2022-06-06 19:30] LABS: MANUAL DIFF FLAG NO
[2022-06-06 19:31] LABS: Basophils Percent Auto 0.8 % (0-2); Eosinophils Absolute Auto 0.2 X10*3/uL (0.0-0.4); Hematocrit 42.9 % (42.0-52.0); Hemoglobin 14.7 g/dl (14.0-18.0); Imm Gran Abs Auto 0.01 X10*3/uL (0.00-0.03); Imm Gran Pct Auto 0.2 % (0.0-0.4); Lymphocytes Absolute Auto 1.8 X10*3/uL (1.2-4.9); Lymphocytes Percent Auto 37.4 % (20-40); Mean Corpuscular HGB Conc 34.3 g/dl (31.0-36.0); Mean Corpuscular Hemoglobin 30.5 pg (27.0-33.0); Mean Platelet Volume 11.1 fL (9.4-12.4); Monocytes Absolute Auto 0.4 X10*3/uL (0.1-1.2); Monocytes Percent Auto 7.8 % (2-11); Neutrophils Absolute Auto 2.4 x10*3/uL (2.0-8.3); Neutrophils Percent Auto 49.8 % (45-73); Platelet Count 172 X10*3/uL (160-400); Red Blood Count 4.82 X10*6/uL (4.60-5.80); Red Cell Distribution Width 11.9 % (11.0-16.0); White Blood Count 4.7 X10*3/uL (4.8-10.8)
[2022-06-06 19:39] VITALS: BP 178/118; PULSE 78; RESP 18; TEMP 36.8; O2SAT 98; BMI 39.3
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
[2022-06-06 19:58] LABS: Anion Gap 14 (12-20)
[2022-06-06 19:59] LABS: Blood Urea Nitrogen 16 mg/dL (9-16); Calcium 9.6 mg/dL (8.4-10.2); Carbon Dioxide 24 mmol/L (22-29); Chloride 103 mmol/L (96-108); Creatinine Clr Calc Pharmacy 125.9; Estimated Glomerular Filt Rate > 60; Glucose Random 111 mg/dL (60-115); Lipase 61 U/L (8-78); Sodium 137 mmol/L (135-145)
[2022-06-06 20:06] LABS: Troponin-I High Sensitivity < 2.7 ng/L (<3.5-35.0)
[2022-06-06 21:36] VITALS: RESP 20
[2022-06-06 22:00] VITALS: BP 142/86; PULSE 84; RESP 18
[2022-06-06] MEDS: 0.9 % Sodium Chloride 1,000 ML 999 ML IV (22:05)
[2022-06-06] MEDS: ondansetron HCL 4 MG/2 ML VIAL IVPUSH (22:06)
[2022-06-06] MEDS: HYDROmorphone HCl 1 MG/ML SYRINGE IVPUSH (22:06)
[2022-06-06 22:42] LABS: Alanine Aminotransferase 52 U/L (0-40); Albumin Level 4.6 g/dL (3.5-5.0); Alkaline Phosphatase 46 U/L (39-117); Aspartate Amino Transferase 37 U/L (5-37); Bilirubin Direct 0.3 mg/dL (0.0-0.5); Bilirubin Total 0.8 mg/dL (0.0-1.0); Total Protein 7.5 g/dL (6.5-8.0)
[2022-06-06 22:43] LABS: Ethanol < 10 mg/dL
--- NOTE | 2022-06-06 22:47 | PC.NURSE ---
20G iv placed inlet forearm- etoh sent- pending results. 1l NS infusing, dilaudid 0.5mg and zofran 4mg administered for 10/10 abdominal pain. pt is now resting quietly, call sorto within reach- pending additional lab results WCTM
[2022-06-07 00:06] VITALS: RESP 16
[2022-06-07] MEDS: HYDROmorphone HCl 1 MG/ML SYRINGE IVPUSH (00:06)
--- NOTE | 2022-06-07 00:33 | PC.NURSE ---
pt discharged by LEBRON craven, This RN departed pt,
== END 2022-06-07 00:34 | disposition home or self-care (01) ==
PROVIDERS: Physician Assistant; Emergency Provider Emergency Medicine
DX: K85.90 Acute pancreatitis without necrosis or infection, unspecified (principal); K86.1 Other chronic pancreatitis; R10.9 Unspecified abdominal pain; I10 Essential (primary) hypertension; Z79.899 Other long term (current) drug therapy
CPT/HCPCS: 36415; 80048; 80076; 82077; 83690; 84484; 85025; 93005; 96374; 96375; 96376; 99284; J1170; J2405

== ENCOUNTER 2022-07-21 13:58 | Emergency (ER) | payer OTHER, SELFPAY ==
[2022-07-21 14:44] VITALS: BP 174/100; PULSE 96; RESP 18; TEMP 36.6; O2SAT 98; BMI 39.3
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
[2022-07-21 15:19] LABS: MANUAL DIFF FLAG NO
[2022-07-21 15:21] LABS: Basophils Percent Auto 0.6 % (0-2); Eosinophils Absolute Auto 0.2 X10*3/uL (0.0-0.4); Eosinophils Percent Auto 3.2 % (0-4); Hematocrit 42.2 % (42.0-52.0); Hemoglobin 14.5 g/dl (14.0-18.0); Imm Gran Abs Auto 0.01 X10*3/uL (0.00-0.03); Imm Gran Pct Auto 0.2 % (0.0-0.4); Lymphocytes Absolute Auto 1.1 X10*3/uL (1.2-4.9); Lymphocytes Percent Auto 24.4 % (20-40); Mean Corpuscular HGB Conc 34.4 g/dl (31.0-36.0); Mean Corpuscular Hemoglobin 30.4 pg (27.0-33.0); Mean Corpuscular Volume 88.5 fL (80.0-98.0); Mean Platelet Volume 11.2 fL (9.4-12.4); Monocytes Absolute Auto 0.4 X10*3/uL (0.1-1.2); Monocytes Percent Auto 7.8 % (2-11); Neutrophils Percent Auto 63.8 % (45-73); Platelet Count 164 X10*3/uL (160-400); Red Blood Count 4.77 X10*6/uL (4.60-5.80); Red Cell Distribution Width 12.3 % (11.0-16.0); White Blood Count 4.6 X10*3/uL (4.8-10.8)
[2022-07-21 15:36] LABS: Alanine Aminotransferase 65 U/L (0-40); Albumin Level 4.7 g/dL (3.5-5.0); Alkaline Phosphatase 44 U/L (39-117); Anion Gap 14 (12-20); Aspartate Amino Transferase 38 U/L (5-37); Bilirubin Direct 0.3 mg/dL (0.0-0.5); Bilirubin Total 0.9 mg/dL (0.0-1.0); Blood Urea Nitrogen 14 mg/dL (9-16); Calcium 9.5 mg/dL (8.4-10.2); Carbon Dioxide 26 mmol/L (22-29); Chloride 99 mmol/L (96-108); Creatinine Clr Calc Pharmacy 137.7; Estimated Glomerular Filt Rate > 60; Glucose Random 158 mg/dL (60-115); Lipase 64 U/L (8-78); Potassium 4.3 mmol/L (3.3-5.1); Sodium 135 mmol/L (135-145); Total Protein 8.1 g/dL (6.5-8.0)
[2022-07-21 19:31] VITALS: BP 181/108; PULSE 97; RESP 18; TEMP 36.9; O2SAT 98
--- NOTE | 2022-07-21 19:37 | PC.NURSE ---
pt AOx3, presents to ER with right sided abd/flank pain. Pt reports significant drinking over the weekend and reports that they have been to [facility] before with a similar episode. PT hypertensive 181/108. Vitals otherwise stable urine sample obtained and sent to lab will ctm
[2022-07-21 19:54] LABS: Appearance Urine Clear; Color Urine Yellow; Glucose Urine UA Negative (Negative); Leukocyte Esterase Urine Negative (Negative); Nitrite Urine Negative (Negative); PH 5.5 (5.0-9.0); Specific Gravity - Urine 1.025 (1.005-1.025); Urine Blood Negative (Negative); Urine Ketones Negative (Negative); Urine Protein Negative (Neg-Trace)
[2022-07-21 20:05] VITALS: BP 165/106; PULSE 85; RESP 18; O2SAT 98
[2022-07-21] MEDS: oxyCODONE HCl Immed Release 5 MG TABLET 10 MG PO (20:47)
--- NOTE | 2022-07-21 20:47 | MHC.RECOVSUP ---
? Reason for consult:ETOH o? Current location:ED12? o? Identified substance use concern:? -? Support ? Intervention: o? Community resources provided o? Harm reduction discussion ? Plan: o? Patient to follow up with [facility] after discharge ? Additional information:[facility] met with this patient and discussed treatment for Alcohol, pt was provided with [facility] pamphlet and business card. Pt is going to call [facility] tomorrow to complete referral for services.
[2022-07-21] MEDS: HYDROmorphone HCl 1 MG/ML SYRINGE IM (22:48)
[2022-07-21 22:50] VITALS: BP 163/90; PULSE 86; RESP 18; O2SAT 98
== END 2022-07-21 23:28 | disposition home or self-care (01) ==
PROVIDERS: Physician Assistant; Physician Assistant Medical; Emergency Provider Internal Medicine
DX: R10.2 Pelvic and perineal pain (principal); Z79.899 Other long term (current) drug therapy; Z87.891 Personal history of nicotine dependence
CPT/HCPCS: 36415; 80048; 80076; 81003; 83690; 83735; 84702; 85025; 96372; 99284; J1170

== ENCOUNTER 2023-01-21 00:11 | Emergency (ER) | payer OTHER, SELFPAY ==
--- NOTE | ~2023-01-21 | CT_ITS ---
EXAMINATION: CT ABDOMEN AND PELVIS WITH CONTRAST CLINICAL INFORMATION: Pancreatitis COMPARISON: 06/04/2022 TECHNIQUE: Multidetector volumetric images were obtained from the superior aspect of the liver through the pubic symphysis following administration 85 mL of Omnipaque 350 intravenous contrast. Sagittal and coronal reformatted images were obtained on the technologist's workstation. Oral contrast: No This CT examination was performed using dose optimization techniques as appropriate, variously including the following: *Automated exposure control *Adjustment of mA and/or kV according to patient size (this includes techniques or standardized protocols for targeted exams where dose is matched to indication/reason for exam; i.e. extremities or head) *Use of iterative reconstruction technique DLP: 816 mGy-cm FINDINGS: LUNG BASES: The visualized lung bases are unremarkable. LIVER, GALLBLADDER, AND BILIARY TREE: The liver is normal in size, shape, and attenuation. No focal hepatic lesion or biliary ductal dilatation is present. Gallbladder is physiologically distended. No densely calcified gallstones are seen. Gallbladder wall appears slightly prominent, of uncertain clinical significance. PANCREAS: There is mild peripancreatic stranding suspicious for sequelae of acute pancreatitis. No discrete fluid collection is seen. Tiny calcification noted along the pancreatic body. SPLEEN: Unremarkable. ADRENAL GLANDS: Unremarkable. KIDNEYS AND URETERS: Bilateral nephrograms are symmetric. No hydronephrosis or obstructing calculus identified. BLADDER: Mildly distended and grossly unremarkable. GASTROINTESTINAL TRACT: No evidence of bowel obstruction or significant wall thickening. The appendix is unremarkable. No free fluid or free air is seen. ABDOMINAL WALL: No significant hernia is appreciated. LYMPH NODES: Normal. VASCULAR: Unremarkable. PELVIC VISCERA: Unremarkable. OSSEOUS STRUCTURES: Unremarkable. CT/CT abdomen pelvis w IV con IMPRESSION: 1. Mild peripancreatic stranding suspicious for sequelae of acute pancreatitis. No discrete fluid collection identified. 2. Gallbladder wall appears slightly prominent, of uncertain clinical significance. If there is clinical concern for cholecystitis, this would be better assessed with ultrasound.
[2023-01-21 00:40] VITALS: BP 191/118; PULSE 75; RESP 18; TEMP 37.2; O2SAT 99; BMI 38.5
--- NOTE | 2023-01-21 00:44 | PC.NURSE ---
Notified charge nurse of elevated blood pressure. Juanjose Basurto
--- NOTE | 2023-01-21 00:47 | MHC.EDTECH ---
Labs,and urine obtained and sent to lab,patient brought back to waiting area.
[2023-01-21 00:51] LABS: Hematocrit 44.2 % (42.0-52.0); Hemoglobin 15.3 g/dl (14.0-18.0); Mean Corpuscular HGB Conc 34.6 g/dl (31.0-36.0); Mean Corpuscular Hemoglobin 30.4 pg (27.0-33.0); Mean Corpuscular Volume 87.7 fL (80.0-98.0); Mean Platelet Volume 10.6 fL (9.4-12.4); Platelet Count 193 X10*3/uL (160-400); Red Blood Count 5.04 X10*6/uL (4.60-5.80); White Blood Count 4.7 X10*3/uL (4.8-10.8)
[2023-01-21 00:53] LABS: Appearance Urine Clear; Color Urine Yellow; Glucose Urine UA Negative (Negative); Leukocyte Esterase Urine Negative (Negative); Nitrite Urine Negative (Negative); Specific Gravity - Urine >= 1.030 (1.005-1.025); Urine Blood Negative (Negative); Urine Ketones 15 mg/dL (Negative); Urine Protein Negative (Neg-Trace)
[2023-01-21 00:59] LABS: Bacteria Urine None Seen (None Seen); Hyaline Casts Urine 0-2 /LPF (0-2); Squamous Epithelial Cell Urine 0-2 /HPF (0-2); WBC Urine 0-5 /HPF (0-5)
[2023-01-21 01:05] LABS: Alanine Aminotransferase 46 U/L (0-40); Albumin Level 4.5 g/dL (3.5-5.0); Alkaline Phosphatase 41 U/L (39-117); Anion Gap 15 (12-20); Aspartate Amino Transferase 37 U/L (5-37); Bilirubin Total 0.6 mg/dL (0.0-1.0); Blood Urea Nitrogen 11 mg/dL (9-16); Calcium 10.2 mg/dL (8.4-10.2); Carbon Dioxide 24 mmol/L (22-29); Chloride 103 mmol/L (96-108); Creatinine Clr Calc Pharmacy 114.6; Estimated Glomerular Filt Rate > 60; Glucose Random 103 mg/dL (60-115); Lipase 44 U/L (8-78); Sodium 138 mmol/L (135-145); Total Protein 8.1 g/dL (6.5-8.0)
[2023-01-21 02:49] VITALS: BP 186/109; PULSE 66; RESP 12; O2SAT 100
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
[2023-01-21] MEDS: ondansetron HCL 4 MG/2 ML VIAL IVPUSH (04:59)
[2023-01-21] MEDS: Morphine Sulfate 4 MG/ML CARTRIDGE IVPUSH ×2 (04:59→06:51)
[2023-01-21] MEDS: 0.9 % Sodium Chloride 1,000 ML 999 ML IV (05:00)
[2023-01-21] MEDS: iohexoL 350 MG/ML 100 ML INFUS..BTL 85 ML IV (05:14)
--- NOTE | 2023-01-21 05:28 | PC.NURSE ---
Pt alert and oriented X 4, reporting sbdominal pain 6/10 and nausea. #20 IV placed in L-forearm, IV morphine and zofran given as ordered. NS running. Pt to CT.
[2023-01-21 06:26] VITALS: BP 169/111; PULSE 70; RESP 17; TEMP 36.9; O2SAT 98
[2023-01-21] MEDS: Metoprolol Tartrate 50 MG TABLET PO (06:40)
[2023-01-21] MEDS: lisinopriL 20 MG TABLET PO (06:40)
== END 2023-01-21 07:03 | disposition home or self-care (01) ==
PROVIDERS: Emergency Provider Internal Medicine
DX: K85.90 Acute pancreatitis without necrosis or infection, unspecified (principal); I10 Essential (primary) hypertension; Z87.891 Personal history of nicotine dependence
CPT/HCPCS: 36415; 74177; 80053; 81001; 83690; 85027; 96374; 96375; 96376; 99284; J2270; J2405; Q9967

== ENCOUNTER 2024-01-25 23:18 | Inpatient (IN) | payer OTHER, SELFPAY ==
--- NOTE | 2024-01-25 | ECG_ITS ---
Test Reason : CHEST TIGHTNESS Blood Pressure : / mmHG Vent. Rate : 097 BPM Atrial Rate : 097 BPM P-R Int : 164 ms QRS Dur : 096 ms QT Int : 342 ms P-R-T Axes : 034 -18 031 degrees QTc Int : 434 ms Normal sinus rhythm Minimal voltage criteria for LVH, may be normal variant ( R in aVL ) Nonspecific T wave abnormality Abnormal ECG When compared with ECG of 06-JUN-2022 19:04, Nonspecific T wave abnormality now evident in Lateral leads Referred By: Generic ED Physician Electronically Signed By:Jensen Doss
--- NOTE | ~2024-01-25 | US_ITS ---
EXAMINATION: US ABDOMEN LIMITED CLINICAL INFORMATION: Rule out gallstones, mild peripancreatic infiltration.. COMPARISON: CT abdomen and pelvis from the same date TECHNIQUE: Targeted ultrasound of the gallbladder was performed. FINDINGS: GALLBLADDER: The gallbladder is physiologically distended without evidence of stones, sludge, polyps, wall thickening or pericholecystic fluid. COMMON BILE DUCT: Normal in caliber measuring 0.3 cm in diameter. US/US abdomen limited IMPRESSION: Unremarkable sonographic appearance of the gallbladder. Electronically signed by: Benedict Verma MD 01/26/2024 08:10 PM EST
--- NOTE | ~2024-01-25 | CT_ITS ---
EXAMINATION: CT ABDOMEN AND PELVIS WITHOUT CONTRAST CLINICAL INFORMATION: Abdominal pain. COMPARISON: January 21, 2023 TECHNIQUE: Multidetector volumetric imaging was performed from the superior aspect of the liver through the pubic symphysis. Sagittal and coronal reformatted images were obtained on the technologist's workstation. This CT examination was performed using dose optimization techniques as appropriate, variously including the following: *Automated exposure control *Adjustment of mA and/or kV according to patient size (this includes techniques or standardized protocols for targeted exams where dose is matched to indication/reason for exam; i.e. extremities or head) *Use of iterative reconstruction technique DLP: 984 mGy-cm FINDINGS: LUNG BASES: The visualized lung bases are unremarkable. LIVER, GALLBLADDER, AND BILIARY TREE: The liver is normal in size, shape, and attenuation. No focal hepatic lesion or biliary ductal dilatation is present. The gallbladder is unremarkable with no evidence of radiopaque gallstones, gallbladder wall thickening, or obvious pericholecystic inflammatory changes. PANCREAS: There is mild peripancreatic infiltration slightly more prominent than prior study. Single pancreatic calcification is noted. SPLEEN: Unremarkable. ADRENAL GLANDS: Unremarkable. KIDNEYS AND URETERS: The kidneys are normal in size, shape, and attenuation. No hydronephrosis, hydroureter, or calculi seen. No perinephric stranding. BLADDER: Unremarkable. GASTROINTESTINAL TRACT: There are a few diverticula of the descending colon without diverticulitis. The appendix is visualized and is within normal limits. ABDOMINAL WALL: No significant hernia is appreciated. LYMPH NODES: Normal. VASCULAR: Unremarkable. PELVIC VISCERA: Unremarkable. OSSEOUS STRUCTURES: Unremarkable. CT/CT abdomen pelvis wo IV con IMPRESSION: Mild peripancreatic infiltration consistent with pancreatitis. Diverticula of the ascending colon without diverticulitis. Fleischner guidelines were followed. Electronically signed by: Emanuel Meneses MD 01/26/2024 03:03 AM [facility]
[2024-01-25 23:33] VITALS: BP 181/108; PULSE 95; RESP 18; TEMP 36.9; O2SAT 99; BMI 40.4
[2024-01-26] VITALS (8 sets, daily range): BP systolic 105–167; BP diastolic 39–104; PULSE 58–91; RESP 16–20; TEMP 36.3–37; O2SAT 94–98; BMI 40.4
[2024-01-26 00:01] LABS: MANUAL DIFF FLAG NO
[2024-01-26 00:03] LABS: Basophils Percent Auto 0.8 % (0-2); Eosinophils Absolute Auto 0.1 X10*3/uL (0.0-0.4); Hematocrit 41.3 % (42.0-52.0); Hemoglobin 14.8 g/dl (14.0-18.0); Imm Gran Abs Auto 0.01 X10*3/uL (0.00-0.03); Imm Gran Pct Auto 0.2 % (0.0-0.4); Lymphocytes Absolute Auto 1.5 X10*3/uL (1.2-4.9); Lymphocytes Percent Auto 31.8 % (20-40); Mean Corpuscular HGB Conc 35.8 g/dl (31.0-36.0); Mean Corpuscular Hemoglobin 30.8 pg (27.0-33.0); Mean Platelet Volume 10.8 fL (9.4-12.4); Monocytes Absolute Auto 0.4 X10*3/uL (0.1-1.2); Monocytes Percent Auto 8.1 % (2-11); Neutrophils Absolute Auto 2.6 x10*3/uL (2.0-8.3); Neutrophils Percent Auto 56.1 % (45-73); Platelet Count 192 X10*3/uL (160-400); Red Cell Distribution Width 12.1 % (11.0-16.0); White Blood Count 4.7 X10*3/uL (4.8-10.8)
[2024-01-26 00:19] LABS: Albumin Level 4.5 g/dL (3.5-5.0); Alkaline Phosphatase 44 U/L (39-117); Anion Gap 14 (12-20); Aspartate Amino Transferase 31 U/L (5-37); Bilirubin Direct 0.1 mg/dL (0.0-0.5); Bilirubin Total 0.3 mg/dL (0.0-1.0); Blood Urea Nitrogen 9 mg/dL (9-16); Calcium 9.1 mg/dL (8.4-10.2); Carbon Dioxide 20 mmol/L (22-29); Chloride 107 mmol/L (96-108); Creatinine Clr Calc Pharmacy 115.5; Estimated Glomerular Filt Rate > 60; Glucose Random 145 mg/dL (60-115); Lipase 127 U/L (8-78); Sodium 137 mmol/L (135-145); Total Protein 7.9 g/dL (6.5-8.0)
[2024-01-26 00:25] LABS: Troponin-I High Sensitivity < 2.7 ng/L (<3.5-35.0)
[2024-01-26] MEDS: SUMAtriptan succinate 6 MG/0.5 ML VIAL SUBCUT (00:48)
[2024-01-26] MEDS: Ondansetron ODT 4 MG TAB.RAPDIS TRANSLINGU (00:48)
[2024-01-26 00:54] LABS: Alanine Aminotransferase 61 U/L (0-40)
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
--- NOTE | 2024-01-26 01:50 | PC.NURSE ---
late entry- this rn assumed care of pt, pt a&ox4, respirations even and unlabored. pt reporting onset of migraine and lower abdominal pain. pt reporting photosensitivity, nausea but denies vomiting. pt medicate per apr.
--- NOTE | 2024-01-26 01:51 | PC.NURSE ---
pt reporting migraine has subsided, pt reporting 5/10 lower abdominal pain. pt ambulatory to CT with steady gait.
[2024-01-26] MEDS: 0.9 % Sodium Chloride 1,000 ML 999 ML IV (03:21)
[2024-01-26] MEDS: Morphine Sulfate 4 MG/ML CARTRIDGE IVPUSH (03:21)
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
[2024-01-26 05:08] LABS: Appearance Urine Clear; Color Urine Yellow; Glucose Urine UA Negative (Negative); Leukocyte Esterase Urine Negative (Negative); Nitrite Urine Negative (Negative); Urine Blood Negative (Negative); Urine Ketones Trace mg/dL (Negative); Urine Protein Negative (Neg-Trace)
[2024-01-26 05:11] LABS: Bacteria Urine None Seen (None Seen); Hyaline Casts Urine 0-2 /LPF (0-2); RBC Urine 0-2 /HPF (0-2); Squamous Epithelial Cell Urine 0-2 /HPF (0-2); WBC Urine 0-5 /HPF (0-5)
[2024-01-26] MEDS: HYDROmorphone HCl 1 MG/ML SYRINGE IVPUSH (05:11)
[2024-01-26] MEDS: Pantoprazole Sodium 40 MG/10 ML VIAL IVPUSH (05:11)
[2024-01-26] MEDS: Lactated Ringers 1,000 ML 150 ML IVCONT ×3 (05:11→17:49)
[2024-01-26 06:04] LABS: MANUAL DIFF FLAG NO
[2024-01-26 06:13] LABS: Basophils Percent Auto 0.7 % (0-2); Eosinophils Absolute Auto 0.2 X10*3/uL (0.0-0.4); Eosinophils Percent Auto 3.4 % (0-4); Hematocrit 40.1 % (42.0-52.0); Hemoglobin 14.1 g/dl (14.0-18.0); Imm Gran Abs Auto 0.02 X10*3/uL (0.00-0.03); Imm Gran Pct Auto 0.4 % (0.0-0.4); Lymphocytes Absolute Auto 2.1 X10*3/uL (1.2-4.9); Lymphocytes Percent Auto 38.1 % (20-40); Mean Corpuscular HGB Conc 35.2 g/dl (31.0-36.0); Mean Corpuscular Hemoglobin 30.7 pg (27.0-33.0); Mean Corpuscular Volume 87.4 fL (80.0-98.0); Mean Platelet Volume 10.9 fL (9.4-12.4); Monocytes Absolute Auto 0.4 X10*3/uL (0.1-1.2); Monocytes Percent Auto 7.5 % (2-11); Neutrophils Absolute Auto 2.8 x10*3/uL (2.0-8.3); Neutrophils Percent Auto 49.9 % (45-73); Platelet Count 177 X10*3/uL (160-400); Red Blood Count 4.59 X10*6/uL (4.60-5.80); Red Cell Distribution Width 12.4 % (11.0-16.0); White Blood Count 5.6 X10*3/uL (4.8-10.8)
[2024-01-26 06:21] LABS: Alanine Aminotransferase 55 U/L (0-40); Albumin Level 4.3 g/dL (3.5-5.0); Alkaline Phosphatase 41 U/L (39-117); Anion Gap 13 (12-20); Aspartate Amino Transferase 27 U/L (5-37); Bilirubin Total 0.4 mg/dL (0.0-1.0); Blood Urea Nitrogen 13 mg/dL (9-16); Calcium 9.3 mg/dL (8.4-10.2); Carbon Dioxide 24 mmol/L (22-29); Chloride 108 mmol/L (96-108); Creatinine Clr Calc Pharmacy 118.3; Estimated Glomerular Filt Rate > 60; Glucose Random 115 mg/dL (60-115); Lipase 55 U/L (8-78); Potassium 3.8 mmol/L (3.3-5.1); Sodium 141 mmol/L (135-145); Total Protein 7.3 g/dL (6.5-8.0)
--- NOTE | 2024-01-26 07:00 | PC.NURSE ---
Report taken from LEBRON Hernandez and Shauna RN
--- NOTE | 2024-01-26 08:10 | PHA.MEDREC ---
Addendum entered by Panda Scherer 01/26/24 08:27: reviewed Original Note: Pharmacy Consult ? Medication Reconciliation Pharmacy has completed the medication reconciliation. Spoke with patient and he confirmed his medications. He states he is no longer taking the Morphine or Oxycodone. He confirmed he took his medications yesterday.
[2024-01-26] MEDS: Acetaminophen 325 MG TABLET 650 MG PO (09:11)
[2024-01-26] MEDS: 0.9 % Sodium Chloride Flush 3 ML SYRINGE IVFLUSH ×2 (09:12→15:43)
--- NOTE | 2024-01-26 10:58 | PC.NURSE ---
Eun Aguilar MD notified for additional pain medications. Pt. still having pain s/p PRN Tylenol
--- NOTE | 2024-01-26 11:08 | P.PNIM_ITS ---
Subjective Subjective Date of Service: 01/26/24 Interval History: still with abd pain Physical Exam 2 Vital Signs: Vital Signs: Last Vital Signs Temp 97.8 F 01/26/24 06:53 Pulse 82 01/26/24 06:53 Resp 18 01/26/24 06:53 BP 120/39 L 01/26/24 06:53 Pulse Ox 97 01/26/24 06:53 O2 Del Method Room Air 01/26/24 06:53 BMI result Body Mass Index 40.4 General: AO X 3, in pain Resp: CTA bilateral, no accessory muscles used CVS: S1,S2,RRR GI: soft, tender, non distended Neuro: motor grossly intact, alert Psych: appropriate affect, appropriate insight Objective Data Active Medications Acetaminophen (Acetaminophen 325 Mg Tablet) 650 mg PO Q6H PRN PRN Reason: Pain, Mild (Pain Scale 1-3), fever or headache Last Admin: 01/26/24 09:11 Dose: 650 mg Documented By: VALERIY Albuterol Sulfate (Albuterol Sulfate 90 Mcg 8 Gm Inhaler) 2 puff INHALE Q6H PRN PRN Reason: dyspnea Enoxaparin Sodium (Enoxaparin Sodium 40 Mg/0.4 Ml Syringe) 40 mg SUBCUT Q24H [facility] Last Admin: 01/26/24 09:12 Dose: Not Given Documented By: VALERIY Non-Admin Reason: Patient Refused Hydromorphone HCl (Hydromorphone Hcl 0.5 Mg/0.5 Ml Syringe) 0.5 mg IVPUSH Q4H PRN; Protocol PRN Reason: Pain, Severe (Pain Scale 7-10) Lactated Ringer's (Lr) 1,000 mls @ 150 mls/hr IVCONT .Q6H40M [facility] Last Admin: 01/26/24 05:11 Dose: 150 mls/hr Documented By: SERRANCristobal Metoprolol Succinate (Metoprolol Succinate Er 50 Mg Tab.Er.24h) 50 mg PO DAILY [facility]; Protocol Non-Formulary Medication (Niacin) 500 mg PO DAILY [facility] Non-Formulary Medication (Budesonide-Formoterol [Symbicort]) 2 inhalation INHALE BID [facility] Ondansetron HCl (Ondansetron Hcl 4 Mg/2 Ml Vial) 4 mg IVPUSH Q8H PRN PRN Reason: Nausea and Vomiting Pantoprazole Sodium (Pantoprazole Sodium 40 Mg/10 Ml Vial) 40 mg IVPUSH DAILY@0630 [facility] Polyethylene Glycol (Polyethylene Glycol 3350 17 Gm Powd.Pack) 17 gm PO DAILY PRN PRN Reason: Constipation Sodium Chloride (0.9 % Sodium Chloride Flush 3 Ml Syringe) 3 ml IVFLUSH QSHIFT EDUARDA Last Admin: 01/26/24 09:12 Dose: 3 ml Documented By: VALERIY Labs 01/26/24 06:00 01/26/24 06:00 Labs: Laboratory Results - last 24 hr 01/25/24 01/26/24 01/26/24 23:56 05:01 06:00 MCV 86.0 87.4 MCH 30.8 30.7 MCHC 35.8 35.2 RDW 12.1 12.4 Plt Count 192 177 MPV 10.8 10.9 Immature Gran % (Auto) 0.2 0.4 Neut % (Auto) 56.1 49.9 Lymph % (Auto) 31.8 38.1 [place] % (Auto) 8.1 7.5 Eos % (Auto) 3.0 3.4 Baso % (Auto) 0.8 0.7 Lymph # (Auto) 1.5 2.1 [place] # (Auto) 0.4 0.4 Eos # (Auto) 0.1 0.2 Baso # (Auto) 0.0 0.0 Abs Immat Gran (auto) 0.01 0.02 Absolute Neuts (auto) 2.6 2.8 Absolute Nucleated RBC 0.000 0.000 Nucleated RBC % (auto) 0.0 0.0 Anion Gap 14 13 Estim Creat Clear Calc 115.5 118.3 Estimated GFR > 60 > 60 Random Glucose 145 H 115 Calcium 9.1 D 9.3 Total Bilirubin 0.3 0.4 Direct Bilirubin 0.1 AST 31 27 ALT 61 H 55 H Alkaline Phosphatase 44 41 Troponin I High Sens < 2.7 Total Protein 7.9 7.3 Albumin 4.5 4.3 Lipase 127 H 55 Urine Color Yellow Urine Appearance Clear Urine pH 6.0 Ur Specific [place] 1.020 Urine Protein Negative Urine Glucose (UA) Negative Urine Ketones Trace Urine Blood Negative Urine Nitrite Negative Ur Leukocyte Esterase Negative Urine RBC 0-2 Urine WBC 0-5 Ur Squamous Epith Cells 0-2 Urine Bacteria None Seen Hyaline Casts 0-2 Assessment and Plan (1) Acute pancreatitis: Status: Acute Plan 33M PMH etoh dependence, morbid obesity, htn, moderate persistent asthma presented with abd pain. Acute alcoholic pancreatitis Continue IV fluids, pain meds, check lipids and abdominal ultrasound to rule out other etiologies States he is not ready to start p.o. Moderate persistent asthma Stable, continue p.r.n. inhalers and Symbicort Morbid obesity Weight loss recommended Hypertension Holding off on lisinopril and hydrochlorothiazide for now DVT prophylaxis with Lovenox Full Code reason for continued hospitalization: Not tolerating p.o. at Quality Stroke Does the patient have a stroke diagnosis?: No VTE Prior VTE?: No VTE Risk Level:: Medical - moderate - high VTE Device Contraindication: Treatment Not Indicated VTE Drug Contraindication: N/A - Med Ordered
[2024-01-26] MEDS: HYDROmorphone HCl 0.5 MG/0.5 ML SYRINGE IVPUSH ×3 (11:09→19:49)
[2024-01-26 11:41] LABS: Cholesterol 187 mg/dL (<200); HDL Cholesterol 35 mg/dL (>40); LDL Cholesterol Calculated 91 mg/dL (<100); Triglycerides 305 mg/dL (<150)
--- NOTE | 2024-01-26 11:46 | MHC.CLN ---
NUTRITION CONSULT FOR REPORTED 10# WEIGHT LOSS X ONE WEEK. REVIEW OF WEIGHT HX SHOWS WEIGHT GAIN FROM 01/21 TO 01/25. PATIENT WITH ACUTE ON CHRONIC PANCREATITIS. WEIGHT FLUCTUATION ANTICIPATED WITH DX. POOR PO REPORTED PRIOR TO ADMISSION. CURRENTLY NPO. MONITOR FOR DIET ADVANCEMENT.
[2024-01-27] VITALS (8 sets, daily range): BP systolic 132–168; BP diastolic 64–97; PULSE 55–82; RESP 16–20; TEMP 36.2–36.6; O2SAT 95–100
[2024-01-27] MEDS: HYDROmorphone HCl 0.5 MG/0.5 ML SYRINGE IVPUSH ×6 (00:02→21:58)
[2024-01-27] MEDS: Lactated Ringers 1,000 ML 150 ML IVCONT ×4 (00:03→20:00)
[2024-01-27] MEDS: Pantoprazole Sodium 40 MG/10 ML VIAL IVPUSH (06:00)
[2024-01-27 07:46] LABS: Hematocrit 38.7 % (42.0-52.0); Hemoglobin 13.2 g/dl (14.0-18.0); Mean Corpuscular HGB Conc 34.1 g/dl (31.0-36.0); Mean Corpuscular Hemoglobin 30.4 pg (27.0-33.0); Mean Corpuscular Volume 89.2 fL (80.0-98.0); Mean Platelet Volume 11.6 fL (9.4-12.4); Platelet Count 172 X10*3/uL (160-400); Red Blood Count 4.34 X10*6/uL (4.60-5.80); Red Cell Distribution Width 12.2 % (11.0-16.0); White Blood Count 4.3 X10*3/uL (4.8-10.8)
[2024-01-27 08:13] LABS: Alanine Aminotransferase 46 U/L (0-40); Alkaline Phosphatase 38 U/L (39-117); Anion Gap 16 (12-20); Aspartate Amino Transferase 26 U/L (5-37); Bilirubin Direct 0.2 mg/dL (0.0-0.5); Bilirubin Total 0.7 mg/dL (0.0-1.0); Blood Urea Nitrogen 10 mg/dL (9-16); Calcium 8.8 mg/dL (8.4-10.2); Carbon Dioxide 23 mmol/L (22-29); Chloride 105 mmol/L (96-108); Creatinine Clr Calc Pharmacy 145.2; Estimated Glomerular Filt Rate > 60; Glucose Fasting 98 mg/dL (60-99); Magnesium 1.9 mg/dL (1.6-2.6); Potassium 3.6 mmol/L (3.3-5.1); Sodium 140 mmol/L (135-145); Total Protein 6.7 g/dL (6.5-8.0)
[2024-01-27] MEDS: Metoprolol Succinate ER 50 MG TAB.ER.24H PO (08:18)
[2024-01-27] MEDS: Enoxaparin Sodium 40 MG/0.4 ML SYRINGE SUBCUT (08:18)
--- NOTE | 2024-01-27 09:10 | HO.PM.IMPN ---
Subjective Subjective Date of Service: 01/27/24 Interval History: ready for clears Physical Exam Vital Signs: Vital Signs: Last Vital Signs Temp 97.8 F 01/27/24 07:49 Pulse 55 01/27/24 07:49 Resp 18 01/27/24 07:49 BP 144/82 H 01/27/24 07:49 Pulse Ox 98 01/27/24 07:49 O2 Del Method Room Air 01/27/24 07:49 BMI result Body Mass Index 40.4 General: AO X 3, in pain Resp: CTA bilateral, no accessory muscles used CVS: S1,S2,RRR GI: soft, tender, non distended Neuro: motor grossly intact, alert Psych: appropriate affect, appropriate insight Objective Data Active Medications Acetaminophen (Acetaminophen 325 Mg Tablet) 650 mg PO Q6H PRN PRN Reason: Pain, Mild (Pain Scale 1-3), fever or headache Last Admin: 01/26/24 09:11 Dose: 650 mg Documented By: VALERIY Albuterol Sulfate (Albuterol Sulfate 90 Mcg 8 Gm Inhaler) 2 puff INHALE Q6H PRN PRN Reason: dyspnea Enoxaparin Sodium (Enoxaparin Sodium 40 Mg/0.4 Ml Syringe) 40 mg SUBCUT Q24H [facility] Last Admin: 01/27/24 08:18 Dose: 40 mg Documented By: MIRIAM Fluticasone/Vilanterol (Fluticasone/Vilanterol 100/25 Blst.W.Dev) 1 puff INHALE RDAILY [facility] Last Admin: 01/27/24 07:46 Dose: Not Given Documented By: WILLIAM Non-Admin Reason: pharmacy called for med Hydromorphone HCl (Hydromorphone Hcl 0.5 Mg/0.5 Ml Syringe) 0.5 mg IVPUSH Q4H PRN; Protocol PRN Reason: Pain, Severe (Pain Scale 7-10) Last Admin: 01/27/24 09:03 Dose: 0.5 mg Documented By: MIRIAM Lactated Ringer's (Lr) 1,000 mls @ 150 mls/hr IVCONT .Q6H40M [facility] Last Admin: 01/27/24 06:00 Dose: 150 mls/hr Documented By: DENISE Metoprolol Succinate (Metoprolol Succinate Er 50 Mg Tab.Er.24h) 50 mg PO DAILY [facility]; Protocol Last Admin: 01/27/24 08:18 Dose: 50 mg Documented By: MIRIAM Non-Formulary Medication (Niacin) 500 mg PO DAILY [facility] Ondansetron HCl (Ondansetron Hcl 4 Mg/2 Ml Vial) 4 mg IVPUSH Q8H PRN PRN Reason: Nausea and Vomiting Pantoprazole Sodium (Pantoprazole Sodium 40 Mg/10 Ml Vial) 40 mg IVPUSH DAILY@0630 [facility] Last Admin: 01/27/24 06:00 Dose: 40 mg Documented By: DENISE Polyethylene Glycol (Polyethylene Glycol 3350 17 Gm Powd.Pack) 17 gm PO DAILY PRN PRN Reason: Constipation Sodium Chloride (0.9 % Sodium Chloride Flush 3 Ml Syringe) 3 ml IVFLUSH QSHIFT [facility] Last Admin: 01/27/24 08:17 Dose: Not Given Documented By: MIRIAM Non-Admin Reason: IV Running Labs 01/27/24 07:02 01/27/24 07:02 Labs: Laboratory Results - last 24 hr 01/25/24 01/27/24 23:56 07:02 MCV 89.2 MCH 30.4 MCHC 34.1 RDW 12.2 Plt Count 172 MPV 11.6 Absolute Nucleated RBC 0.000 Nucleated RBC % (auto) 0.0 Anion Gap 16 Estim Creat Clear Calc 145.2 Estimated GFR > 60 Fasting Glucose 98 Calcium 8.8 Magnesium 1.9 Total Bilirubin 0.7 Direct Bilirubin 0.2 AST 26 ALT 46 H Alkaline Phosphatase 38 L Total Protein 6.7 Albumin 4.0 Triglycerides 305 H Cholesterol 187 LDL Cholesterol, Calc 91 HDL Cholesterol 35 L Assessment and Plan (1) Acute pancreatitis: Status: Acute Plan 33M PMH etoh dependence, morbid obesity, htn, moderate persistent asthma presented with abd pain. Acute alcoholic pancreatitis Continue IV fluids, pain meds start clears Moderate persistent asthma Stable, continue p.r.n. inhalers and Symbicort Morbid obesity Weight loss recommended Hypertension Holding off on lisinopril and hydrochlorothiazide for now DVT prophylaxis with Lovenox Full Code reason for continued hospitalization: Not tolerating p.o. Quality Stroke Does the patient have a stroke diagnosis?: No VTE Prior VTE?: No VTE Risk Level:: Medical - moderate - high VTE Device Contraindication: Treatment Not Indicated VTE Drug Contraindication: N/A - Med Ordered
--- NOTE | 2024-01-27 10:58 | MHC.CM.PN ---
PT IS INDEPENDENT HAS OWN RIDE HOME WILL NOT NEED SERVIES WHEN DCD
[2024-01-28] VITALS (10 sets, daily range): BP systolic 132–174; BP diastolic 82–103; PULSE 65–96; RESP 16–20; TEMP 36.6–37.2; O2SAT 95–98
[2024-01-28] MEDS: HYDROmorphone HCl 0.5 MG/0.5 ML SYRINGE IVPUSH ×5 (02:23→21:38)
[2024-01-28] MEDS: Lactated Ringers 1,000 ML 150 ML IVCONT (02:25)
[2024-01-28] MEDS: Pantoprazole Sodium 40 MG/10 ML VIAL IVPUSH (06:10)
[2024-01-28] MEDS: Fluticasone/Vilanterol 100/25 BLST.W.DEV 1 PUFF INHALE (07:43)
[2024-01-28] MEDS: Metoprolol Succinate ER 50 MG TAB.ER.24H PO (08:16)
[2024-01-28] MEDS: Enoxaparin Sodium 40 MG/0.4 ML SYRINGE SUBCUT (08:18)
[2024-01-28] MEDS: 0.9 % Sodium Chloride Flush 3 ML SYRINGE IVFLUSH ×3 (08:21→20:58)
--- NOTE | 2024-01-28 08:55 | P.PNIM_ITS ---
Subjective Subjective Date of Service: 01/28/24 Interval History: ready for solids Physical Exam 2 Vital Signs: Vital Signs: Last Vital Signs Temp 98.7 F 01/28/24 07:51 Pulse 65 01/28/24 07:51 Resp 18 01/28/24 07:51 BP 144/83 H 01/28/24 07:51 Pulse Ox 98 01/28/24 07:51 O2 Del Method Room Air 01/28/24 07:51 BMI result Body Mass Index 40.4 General: AO X 3, in pain Resp: CTA bilateral, no accessory muscles used CVS: S1,S2,RRR GI: soft, tender, non distended Neuro: motor grossly intact, alert Psych: appropriate affect, appropriate insight Objective Data Active Medications Acetaminophen (Acetaminophen 325 Mg Tablet) 650 mg PO Q6H PRN PRN Reason: Pain, Mild (Pain Scale 1-3), fever or headache Last Admin: 01/26/24 09:11 Dose: 650 mg Documented By: VALERIY Albuterol Sulfate (Albuterol Sulfate 90 Mcg 8 Gm Inhaler) 2 puff INHALE Q6H PRN PRN Reason: dyspnea Enoxaparin Sodium (Enoxaparin Sodium 40 Mg/0.4 Ml Syringe) 40 mg SUBCUT Q24H [facility] Last Admin: 01/28/24 08:18 Dose: 40 mg Documented By: MIRIAM Fluticasone/Vilanterol (Fluticasone/Vilanterol 100/25 Blst.W.Dev) 1 puff INHALE RDAILY [facility] Last Admin: 01/28/24 07:43 Dose: 1 puff Documented By: CRISTIAN Hydromorphone HCl (Hydromorphone Hcl 0.5 Mg/0.5 Ml Syringe) 0.5 mg IVPUSH Q4H PRN; Protocol PRN Reason: Pain, Severe (Pain Scale 7-10) Last Admin: 01/28/24 08:16 Dose: 0.5 mg Documented By: MIRIAM Metoprolol Succinate (Metoprolol Succinate Er 50 Mg Tab.Er.24h) 50 mg PO DAILY [facility]; Protocol Last Admin: 01/28/24 08:16 Dose: 50 mg Documented By: MIRIAM Ondansetron HCl (Ondansetron Hcl 4 Mg/2 Ml Vial) 4 mg IVPUSH Q8H PRN PRN Reason: Nausea and Vomiting Pantoprazole Sodium (Pantoprazole Sodium 40 Mg/10 Ml Vial) 40 mg IVPUSH DAILY@0630 [facility] Last Admin: 01/28/24 06:10 Dose: 40 mg Documented By: DENISE Polyethylene Glycol (Polyethylene Glycol 3350 17 Gm Powd.Pack) 17 gm PO DAILY PRN PRN Reason: Constipation Sodium Chloride (0.9 % Sodium Chloride Flush 3 Ml Syringe) 3 ml IVFLUSH QSHIFT [facility] Last Admin: 01/28/24 08:21 Dose: 3 ml Documented By: MIRIAM Labs 01/27/24 07:02 01/27/24 07:02 Assessment and Plan (1) Acute pancreatitis: Status: Acute Plan 33M PMH etoh dependence, morbid obesity, htn, moderate persistent asthma presented with abd pain. Acute alcoholic pancreatitis Continue IV fluids, pain meds start solids Moderate persistent asthma Stable, continue p.r.n. inhalers and Symbicort Morbid obesity Weight loss recommended Hypertension Holding off on lisinopril and hydrochlorothiazide for now DVT prophylaxis with Lovenox Full Code reason for continued hospitalization: Not tolerating p.o. Quality Stroke Does the patient have a stroke diagnosis?: No VTE Prior VTE?: No VTE Risk Level:: Medical - moderate - high VTE Device Contraindication: Treatment Not Indicated VTE Drug Contraindication: N/A - Med Ordered
[2024-01-29] VITALS (7 sets, daily range): BP systolic 107–192; BP diastolic 54–103; PULSE 65–93; RESP 18–20; TEMP 37–37.1; O2SAT 97–99
[2024-01-29] MEDS: HYDROmorphone HCl 0.5 MG/0.5 ML SYRINGE IVPUSH ×2 (01:46→06:20)
[2024-01-29] MEDS: Pantoprazole Sodium 40 MG/10 ML VIAL IVPUSH (06:20)
[2024-01-29] MEDS: 0.9 % Sodium Chloride Flush 3 ML SYRINGE IVFLUSH (07:44)
[2024-01-29] MEDS: Metoprolol Succinate ER 50 MG TAB.ER.24H PO (07:47)
[2024-01-29] MEDS: Fluticasone/Vilanterol 100/25 BLST.W.DEV 1 PUFF INHALE (07:47)
[2024-01-29] MEDS: Enoxaparin Sodium 40 MG/0.4 ML SYRINGE SUBCUT (07:48)
--- NOTE | 2024-01-29 07:49 | PC.NURSE ---
BP elevated 188/103 pulse 69 ,patient c/o headache,Dr. Aguilar made aware,Tylenol and Metroprolol as ordered
[2024-01-29] MEDS: Acetaminophen 325 MG TABLET 650 MG PO (07:56)
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
--- NOTE | 2024-01-29 09:15 | PC.NURSE ---
Pt. medicated with PRN Tylenol for a reported pain scale of 8. Tylenol is only ordered for a pain scale of 1-3, but pt. does not have any PRNs ordered at this time for a stronger pain scale. His only PRN currently is Tylenol for a scale of 1-3. Explained this to pt., and pt. states that he would like to start with Tylenol in the meantime while we wait for a stronger pain medication. Eun Aguilar MD notified requesting stronger pain medication. Awaiting order at this time.
--- NOTE | 2024-01-29 09:17 | MHC.CM.PN ---
Patient is discharged to home selfcare. He has arranged for transport home.
== END 2024-01-29 10:45 | disposition home or self-care (01) | DRG 282 ==
LOC: HO.ED 01-26 04:27 → HO.EDOVER 01-26 04:49 → HO.S3 01-26 10:25
PROVIDERS: Admitting Provider Internal Medicine; Emergency Provider Internal Medicine; Visit Provider Internal Medicine
DX: K85.20 Alcohol induced acute pancreatitis without necrosis or infection (principal); E66.01 Morbid (severe) obesity due to excess calories; I10 Essential (primary) hypertension; J45.40 Moderate persistent asthma, uncomplicated; Z68.41 Body mass index [BMI] 40.0-44.9, adult; Z71.3 Dietary counseling and surveillance; Z87.891 Personal history of nicotine dependence; Z79.899 Other long term (current) drug therapy
CPT/HCPCS: 36415; 74176; 76705; 80048; 80053; 80061; 80076; 81001; 82248; 83690; 83735; 84484; 85025; 85027; 93005; 94640; 99285; J1171; J1650; J2270; J2470; J3030; J7120

== ENCOUNTER → 2024-01-25 23:38 | Outpatient (BNV) | payer OTHER, SELFPAY | PROVIDERS: Admitting Provider Internal Medicine; Emergency Provider Internal Medicine; Visit Provider Internal Medicine Cardiovascular Disease | DX: R94.31 Abnormal electrocardiogram [ECG] [EKG] (principal) | CPT/HCPCS: 93010 ==

== ENCOUNTER → 2024-01-26 04:41 | Outpatient (BNV) | payer OTHER, SELFPAY | PROVIDERS: Admitting Provider Internal Medicine; Emergency Provider Internal Medicine; Visit Provider Internal Medicine | DX: K85.90 Acute pancreatitis without necrosis or infection, unspecified (principal) | CPT/HCPCS: 99223; 99232; 99239; 99499 ==

== ENCOUNTER 2025-01-12 02:35 | Inpatient (IN) | payer OTHER, SELFPAY ==
[2025-01-12] VITALS (10 sets, daily range): BP systolic 115–177; BP diastolic 50–103; PULSE 68–98; RESP 12–20; TEMP 36.4–36.7; O2SAT 94–98; BMI 39.6
--- NOTE | ~2025-01-12 | MR_ITS ---
EXAMINATION: MR ABDOMEN WITHOUT THEN WITH IV CONTRAST HISTORY: abnl ct, see report COMPARISON: Previous CT scans of the abdomen and pelvis most recent January 12, 2025 TECHNIQUE: Axial in and out of phase T1-weighted gradient echo, axial diffusion weighted, and axial and coronal HASTE T2 with fat saturation images were obtained through the abdomen. Subsequently, fat suppressed axial and coronal T1-weighted images were obtained after the intravenous administration of 10 mL Gadavist. FINDINGS: Liver: There is loss of signal intensity in the liver on opposed phase imaging is just above steatosis. There is no enhancing liver mass. The hepatic and portal veins are patent. There is no intrahepatic biliary dilatation. Gallbladder/biliary tree: No gallstones are identified. Gallbladder is upper normal in size. The gallbladder wall is normal. The common bile duct is normal in caliber. No intraluminal filling defects are identified to suggest choledocholithiasis. Spleen: The spleen is unremarkable. Pancreas: There is dilatation of the main pancreatic duct and irregular beaded appearance. Main pancreatic duct measures up to 7.5 mm distally in the head and neck of the pancreas. There are numerous small cysts or dilated side branch duct radicles adjacent to the main pancreatic duct. There is a 2 cm complex cystic lesion in the uncinate process of the head of the pancreas. This is heterogeneous in signal on T1-weighted sequences with some high signal questionable for proteinaceous fluid or blood. This is high signal on T2-weighted sequences with multiple thickened septations. There is wall and septal enhancement post contrast. Remainder the pancreas enhances normally. The head of the pancreas is enlarged measuring up to 3.5 cm and edematous. There is abnormal signal in the peripancreatic fat and small amount of peripancreatic fluid suggestive of acute pancreatitis. This is seen adjacent to the head of the pancreas, in the root of the small bowel mesentery, left anterior pararenal fascia and left paracolic gutter. There is also a small amount of generalized ascites is new or increased from recent CT. Adrenals: The adrenal glands are unremarkable. Kidneys: Lightly malrotated right kidney with posterior orientation of the renal pelvis. The kidneys are otherwise unremarkable. There is no hydronephrosis. Lymph nodes: There are small, small bowel mesentery and retroperitoneal lymph nodes. No enlarged lymph nodes.. Fluid: Air is a small amount of generalized ascites new or increased from prior CT. Visualized bowel: There is diverticulosis of the colon. There is mild dilatation of small and large bowel probably representing a generalized ileus. There is mild wall thickening and increased wall enhancement of multiple loops of small bowel. This may be reactive due to pancreatitis. Differential would include enteritis. SMA and SMV are patent. No evidence of vascular compromise is seen. The splenic vein and portal veins are patent. No aneurysm. Visualized bones: The visualized bones demonstrate normal marrow signal intensity. MR/MR abdomen wo/w con IMPRESSION: Acute pancreatitis with increasing fat stranding surrounding the pancreas, inflammatory change and fluid in the small bowel mesentery, left anterior pararenal space and left paracolic gutter and small amount of generalized ascites. There is mild dilatation of the main pancreatic duct with a beaded appearance and adjacent numerous small cysts probably representing dilated pancreatic side branch duct radicles. New 2 cm complex cystic lesion in the uncinate process of the pancreas. Slightly high signal on T1-weighted sequences suggestive of proteinaceous fluid or hemorrhage. This demonstrates multiple thickened septations with some wall and septal enhancement. This may represent a pseudocyst or abscess. Imaging follow-up recommended. Generalized ileus. Increasing inflammatory change in the root of the small bowel mesentery and mild wall thickening of multiple loops of small bowel and increased wall enhancement. This may be reactive to pancreatitis. Differential would include enteritis. No evidence of vascular compromise is seen. Electronically signed by: Lacie Solano MD 01/14/2025 01:19 PM [facility]
--- NOTE | ~2025-01-12 | CT_ITS ---
CLINICAL HISTORY: Right upper abdominal pain,cholecystitis? CT abdomen and pelvis with contrast Comparison: CT - CT ABDOMEN PELVIS W IV CON - 01/12/25 04:[address]/REG/SR - CT ABDOMEN PELVIS W IV CON - 01/21/23 05:04 EST Findings: No consolidation or effusion in the included lung bases. The liver, spleen, bilateral adrenal glands and bilateral kidneys without acute abnormality or abnormal enhancement. The gallbladder is nondistended. No gallbladder wall thickening or pericholecystic inflammation. There are fat stranding changes surrounding the pancreatic head. In addition, there is a nearly 2 cm hypodense lesion in the pancreatic head, axial image 37, series 2, coronal image 68. There is mild dilatation of the pancreatic duct. The stomach and bowel loops are nondistended. No focal colonic lesions or pneumatosis. There is no pericolonic inflammation. Appendix is normal. No free fluid, collections or free air. No abdominal or pelvic lymphadenopathy. The bladder is normal. There no acute soft tissue or skeletal abnormality in the abdomen or pelvis. There are no skeletal lesions. IMPRESSION: Pancreatic changes surrounding the pancreatic head, compatible with acute pancreatitis. Recommend clinical and laboratory correlation. In addition, there is a new indeterminate nearly 2 cm hypodense lesion in the head of the pancreas, Solid versus cystic. Recommend further evaluation contrast enhanced MRI with pancreatic mass protocol. No significant lymphadenopathy. Examination is otherwise unremarkable. This document has been electronically signed by: Sergio Rodriguez MD on 01/12/2025 06:14:00
[2025-01-12 03:22] LABS: Hematocrit 45.2 % (42.0-52.0); Hemoglobin 15.6 g/dl (14.0-18.0); Imm Gran Abs Auto 0.02 X10*3/uL (0.00-0.03); Imm Gran Pct Auto 0.4 % (0.0-0.4); Lymphocytes Absolute Auto 1.9 X10*3/uL (1.2-4.9); MANUAL DIFF FLAG NO; Mean Corpuscular HGB Conc 34.5 g/dl (31.0-36.0); Mean Corpuscular Hemoglobin 30.2 pg (27.0-33.0); Mean Corpuscular Volume 87.4 fL (80.0-98.0); NRBC Abs Auto 0.000 X10*3/uL (0.0-0.012); NRBC Pct Auto 0.0 /100WBC (0.0-0.2); Platelet Count 182 X10*3/uL (160-400); Red Blood Count 5.17 X10*6/uL (4.60-5.80); White Blood Count 5.1 X10*3/uL (4.8-10.8)
[2025-01-12 03:37] LABS: Alanine Aminotransferase 65 U/L (0-40); Albumin Level 4.9 g/dL (3.5-5.0); Alkaline Phosphatase 51 U/L (39-117); Anion Gap 16 (12-20); Aspartate Amino Transferase 34 U/L (5-37); Blood Urea Nitrogen 18 mg/dL (9-16); Calcium 11.0 mg/dL (8.4-10.2); Carbon Dioxide 26 mmol/L (22-29); Chloride 99 mmol/L (96-108); Creatinine Clr Calc Pharmacy 116.0; Estimated Glomerular Filt Rate > 60; Lipase 22 U/L (8-78); Potassium 4.3 mmol/L (3.3-5.1); Sodium 137 mmol/L (135-145); Total Protein 8.2 g/dL (6.5-8.0)
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
[2025-01-12 03:48] LABS: Magnesium 2.0 mg/dL (1.6-2.6)
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
[2025-01-12] MEDS: iohexoL 350 MG/ML 100 ML INFUS..BTL IV (04:45)
--- NOTE | 2025-01-12 07:51 | PC.NURSE ---
Report received and care assumed at 0710. Pt found to be awake and alert, skin warm and dry, without distress noted. He reports continued/consistent 8/10 RUQ and right flank pain despite previous medication administration. MD Kendall was at bedside at RN's arrival to make him aware of imaging findings and potential need for MRI. The pt was medicated per MAR for pain and expressed his concerns as he reports the medication and dose previously received barely touched the pain . The pt was advised that staff would reassess in 15-30 minutes and share the findings with the provider. He remains hypertensive without any neuro deficits and/or headache/visual disturbances.
--- NOTE | 2025-01-12 08:52 | PHA.MEDREC ---
Addendum entered by Panda Scherer PharmD 01/12/25 09:24: reviewed Original Note: Pharmacy Consult ? Medication Reconciliation Pharmacy has completed the medication reconciliation. Confirmed medication list with patient and against claims history. Patient states they last took both blood pressure medications (Lisinopril-hydrochlorothiazide and Metoprolol Succinate) last Monday (01/04) as they ran out of Lisinopril-HCTZ. patient also states that it has been at least 2 or 3 months since he last took the Oxycodone prescribed to him, and 6 to 8 months since he last took Niacin. The last taken dates are listed as unknown as patient was unable to give an exact date.
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
[2025-01-12] MEDS: Metoprolol Succinate ER 50 MG TAB.ER.24H PO (10:03)
[2025-01-12] MEDS: Lactated Ringers 1,000 ML 125 ML IVCONT ×2 (10:08→18:32)
[2025-01-12] MEDS: PHENobarbitaL sodium 130 MG/ML IM ONCE 310 MG IM (12:23)
--- NOTE | 2025-01-12 12:32 | HO.NURTONUR ---
Pt here w/ c/o abd pain assoc n/v/d x 3 days radiating to R lower abd. Pt has pmhx of etoh abuse but denies drinking within the past 3 months. CIWA has been zero and is on phenobarb protocol.
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
[2025-01-12] MEDS: oxyCODONE HCl Immed Release 5 MG TABLET PO ×2 (13:34→21:21)
[2025-01-12] MEDS: PHENobarbitaL sodium 130 MG/ML VIAL IM Q3Hx2 233 MG IM ×2 (15:15→18:35)
[2025-01-12 17:35] LABS: Appearance Urine Clear; Glucose Urine UA Negative (Negative); PH 5.0 (5.0-9.0); Specific Gravity - Urine >= 1.030 (1.005-1.025)
[2025-01-12] MEDS: 0.9 % Sodium Chloride Flush 3 ML SYRINGE IVFLUSH (21:16)
[2025-01-13] VITALS (13 sets, daily range): BP systolic 125–174; BP diastolic 60–100; PULSE 72–100; RESP 8–20; TEMP 36.3–37.2; O2SAT 94–99
[2025-01-13] MEDS: Lactated Ringers 1,000 ML 125 ML IVCONT (02:24)
[2025-01-13] MEDS: 0.9 % Sodium Chloride Flush 3 ML SYRINGE IVFLUSH ×2 (07:29→20:33)
[2025-01-13 07:58] LABS: Hematocrit 41.2 % (42.0-52.0); Hemoglobin 14.1 g/dl (14.0-18.0); Mean Corpuscular HGB Conc 34.2 g/dl (31.0-36.0); Mean Corpuscular Hemoglobin 30.7 pg (27.0-33.0); Mean Corpuscular Volume 89.6 fL (80.0-98.0); NRBC Abs Auto 0.000 X10*3/uL (0.0-0.012); NRBC Pct Auto 0.0 /100WBC (0.0-0.2); PLT CLUMP 1; Red Blood Count 4.60 X10*6/uL (4.60-5.80)
[2025-01-13 07:59] LABS: White Blood Count 4.9 X10*3/uL (4.8-10.8)
[2025-01-13 08:08] LABS: Anion Gap 17 (12-20); Blood Urea Nitrogen 14 mg/dL (9-16); Carbon Dioxide 22 mmol/L (22-29); Chloride 101 mmol/L (96-108); Creatinine Clr Calc Pharmacy 115.0; Estimated Glomerular Filt Rate > 60; Potassium 4.3 mmol/L (3.3-5.1); Sodium 136 mmol/L (135-145)
[2025-01-13 08:25] LABS: Calcium 9.5 mg/dL (8.4-10.2)
[2025-01-13 08:52] LABS: Platelet Count 135 X10*3/uL (160-400)
[2025-01-13] MEDS: Metoprolol Succinate ER 50 MG TAB.ER.24H PO (09:03)
[2025-01-13] MEDS: Albuterol/Iprat 2.5/0.5MG 3 ML AMPUL.NEB INHALE (09:44)
[2025-01-13] MEDS: Fluticasone/Vilanterol 100/25 BLST.W.DEV 1 PUFF INHALE (09:44)
[2025-01-13] MEDS: Lactated Ringers 1,000 ML 150 ML IVCONT ×2 (10:42→18:40)
--- NOTE | 2025-01-13 11:31 | MHC.CM.PN ---
Pt. is independent, he does not have a PCP, or health insurance, financial counselor is working with him on [employer] [facility]. HCP is on file and confirmed: Sonia. He has a CPAP machine for medical equipment. He can arrange a ride home at [place], DCP; home, self care, CM to follow for DC needs.
--- NOTE | 2025-01-13 14:10 | P.PNGI_ITS ---
Subjective Subjective Date of Service: 01/13/25 Interval History: feels better Critical Care Time (minutes): 0 Physical Exam 2 Vital Signs: Vital Signs: Last Vital Signs Temp 98.3 F 01/13/25 11:18 Pulse 100 01/13/25 11:18 Resp 18 01/13/25 11:18 BP 174/100 H 01/13/25 11:18 Pulse Ox 94 01/13/25 11:18 O2 Del Method Room Air 01/13/25 11:18 BMI result Body Mass Index 39.6 GI: Other: abdomen is soft and nontender Objective Data Labs 01/13/25 07:04 01/13/25 07:04 Labs: Laboratory Results - last 24 hr 01/12/25 01/13/25 17:25 07:04 WBC 4.9 RBC 4.60 Hgb 14.1 Hct 41.2 L MCV 89.6 MCH 30.7 MCHC 34.2 RDW 12.6 Plt Count 135 L D MPV 12.7 H Absolute Nucleated RBC 0.000 Nucleated RBC % (auto) 0.0 Sodium 136 Potassium 4.3 Chloride 101 Carbon Dioxide 22 Anion Gap 17 BUN 14 Creatinine 1.25 Estim Creat Clear Calc 115.0 Estimated GFR > 60 Random Glucose 152 H Calcium 9.5 D Urine Color Yellow Urine Appearance Clear Urine pH 5.0 Ur Specific [place] >= 1.030 H Urine Protein Trace Urine Glucose (UA) Negative Urine Ketones Negative Urine Blood Negative Urine Nitrite Negative Ur Leukocyte Esterase Negative Urine RBC 0-2 Urine WBC 0-5 Ur Squamous Epith Cells 0-2 Urine Bacteria None Seen Hyaline Casts 6-10 Procedures Date of Service Date of Service: 01/13/25 Progress Note: A&P Assessment and plan (1) Acute pancreatitis: Status: Acute Assessment and Plan: MRI ordered continue present tx. Time Spent With Patient Time: Total time managing care of this patient today ____ minutes. Quality Stroke Does the patient have a stroke diagnosis?: No VTE Prior VTE?: No VTE Risk Level:: Medical - moderate - high VTE Device Contraindication: Treatment Not Indicated VTE Drug Contraindication: N/A - Med Ordered
--- NOTE | 2025-01-13 14:56 | HO.PM.IMPN ---
Subjective Subjective Date of Service: 01/13/25 Interval History: Patient seen examined at bedside this morning, complaining of abdominal pain, recently adjusted pain medications. Plans on MRI today. Review of Systems Review of Systems: Yes all other systems are reviewed and are negative Physical Exam Exam: Exam: General: AxOx3, wearing CPAP/BiPaP machine Head: AT/NC ENT: Moist mucous membranes Neck: supple CVS; RRR, S1 S2 normal Lungs: Clear bilateral breath sounds, no wheezes or crackles Abd: Tender to light palpation Ext: No edema and no calf tenderness MSK: moving all 4 limbs Skin: No cyanosis or edema Psych: Cooperative with exam Neurology: no focal deficit Vital Signs: Vital Signs: Last Vital Signs Temp 98.3 F 01/13/25 11:18 Pulse 100 01/13/25 11:18 Resp 18 01/13/25 11:18 BP 174/100 H 01/13/25 11:18 Pulse Ox 94 01/13/25 11:18 O2 Del Method Room Air 01/13/25 11:18 BMI result Body Mass Index 39.6 Objective Data Active Medications Acetaminophen (Acetaminophen 325 Mg Tablet) 650 mg PO Q6H PRN PRN Reason: Pain, Mild 1-3,fever,headache Albuterol Sulfate (Albuterol Sulfate 90 Mcg 8 Gm Inhaler) 2 puff INHALE Q6H PRN PRN Reason: Dyspnea Albuterol/Ipratropium (Albuterol/Iprat 2.5/0.5mg 3 Ml Ampul.Neb) 3 ml INHALE RQ6H WHILE AWAKE PRN PRN Reason: Shortness of Breath/Wheezing Last Admin: 01/13/25 09:44 Dose: 3 ml Documented By: WILLIAM Calcium Carbonate (Calcium Carbonate 750 Mg Tab.Chew) 750 mg PO Q4H PRN PRN Reason: Heartburn Fluticasone/Vilanterol (Fluticasone/Vilanterol 100/25 Blst.W.Dev) 1 puff INHALE RDAILY [facility] Last Admin: 01/13/25 09:44 Dose: 1 puff Documented By: WILLIAM Folic Acid (Folic Acid 1 Mg Tablet) 1 mg PO DAILY [facility] Last Admin: 01/13/25 09:03 Dose: 1 mg Documented By: LENY Heparin Sodium (Porcine) (Heparin Sodium,Porcine 5,000 Unit/Ml Vial) 5,000 unit SUBCUT Q12H [facility] Last Admin: 01/13/25 09:00 Dose: 5,000 unit Documented By: LEYN Hydrochlorothiazide (Hydrochlorothiazide 12.5 Mg Tablet) 12.5 mg PO DAILY [facility] Last Admin: 01/13/25 09:06 Dose: 12.5 mg Documented By: LENY Hydromorphone HCl (Hydromorphone Hcl 2 Mg/Ml Vial) 2 mg IVPUSH Q3H PRN; Protocol PRN Reason: Pain, Severe (Pain Scale 7-10) Lactated Ringer's (Lr) 1,000 mls @ 150 mls/hr IVCONT .Q6H40M [facility] Last Admin: 01/13/25 10:42 Dose: 150 mls/hr Documented By: LENY Lisinopril (Lisinopril 20 Mg Tablet) 20 mg PO DAILY [facility] Last Admin: 01/13/25 09:07 Dose: 20 mg Documented By: LENY Magnesium Hydroxide (Milk Of Magnesia 30 Ml Oral.Susp) 30 ml PO DAILY PRN PRN Reason: Constipation Melatonin (Melatonin 3 Mg Tablet) 6 mg PO BEDTIME PRN PRN Reason: Insomnia Metoprolol Succinate (Metoprolol Succinate Er 50 Mg Tab.Er.24h) 50 mg PO DAILY [facility]; Protocol Last Admin: 01/13/25 09:03 Dose: 50 mg Documented By: LENY Multivitamins/Vitamin C (Multivitamin Tablet) 1 tab PO DAILY [facility] Last Admin: 01/13/25 09:06 Dose: 1 tab Documented By: LENY Ondansetron HCl (Ondansetron Hcl 4 Mg/2 Ml Vial) 4 mg IVPUSH Q8H PRN PRN Reason: Nausea and Vomiting Oxycodone HCl (Oxycodone Hcl Immed Release 5 Mg Tablet) 5 mg PO Q6H PRN PRN Reason: Pain, Moderate(Pain Scale 4-6) Last Admin: 01/12/25 21:21 Dose: 5 mg Documented By: REANNA Oxycodone HCl (Oxycodone Hcl Er 10 Mg Tab.Er.12h) 10 mg PO BID [facility] Pharmacy Consult (Consult Rx Etoh Phenob Im/Po) 1 each MISCELLANE ONCE PRN; Protocol PRN Reason: Consult order Phenobarbital (Phenobarbital 30 Mg Tablet) 60 mg PO BID [facility] Stop: 01/14/25 09:01 Last Admin: 01/13/25 09:04 Dose: 60 mg Documented By: LENY Phenobarbital (Phenobarbital 30 Mg Tablet) 30 mg PO BID [facility] Stop: 01/16/25 09:01 Phenobarbital (Phenobarbital 30 Mg Tablet) 30 mg PO BEDTIME [facility] Stop: 01/17/25 21:01 Sodium Chloride (0.9 % Sodium Chloride Flush 3 Ml Syringe) 3 ml IVFLUSH QSHIFT [facility] Last Admin: 01/13/25 07:29 Dose: 3 ml Documented By: LENY Thiamine HCl (Thiamine Hcl 100 Mg Tablet) 100 mg PO DAILY [facility] Last Admin: 01/13/25 09:07 Dose: 100 mg Documented By: LENY Labs 01/13/25 07:04 01/13/25 07:04 Labs: Laboratory Results - last 24 hr 01/12/25 01/13/25 17:25 07:04 MCV 89.6 MCH 30.7 MCHC 34.2 RDW 12.6 Plt Count 135 L D MPV 12.7 H Absolute Nucleated RBC 0.000 Nucleated RBC % (auto) 0.0 Anion Gap 17 Estim Creat Clear Calc 115.0 Estimated GFR > 60 Random Glucose 152 H Calcium 9.5 D Urine Color Yellow Urine Appearance Clear Urine pH 5.0 Ur Specific [place] >= 1.030 H Urine Protein Trace Urine Glucose (UA) Negative Urine Ketones Negative Urine Blood Negative Urine Nitrite Negative Ur Leukocyte Esterase Negative Urine RBC 0-2 Urine WBC 0-5 Ur Squamous Epith Cells 0-2 Urine Bacteria None Seen Hyaline Casts 6-10 Assessment and Plan (1) Alcohol use disorder: Status: Acute (2) Acute pancreatitis: Status: Acute Plan 34 year old man admitted with acute pancreatitis secondary to alcohol intake Acute Pancreatitis likely secondary to alcohol intake Abdominal CT showing acute pancreatitis with hypodense lesion in the head of the pancreas lipase normal MRCP today will increase IV fluids to 150mL/hr given patients weight Adjusted pain medication to dilaudid 2mg IV q3h, given worsening pain, will also initiate extended release Oxycontin 10mg. will slowly taper off once pain improves GI consulted Clear liquid diet for now, advance as tolerated Alcohol abuse Patient denies any history of withdrawal symptoms including seizures Continue phenobarbital protocol Thiamine, multivitamin and folic acid Addiction consultation CIWA protocol Hypertension, at this time likely elevated due to pain Continue lisinopril, metoprolol and hydrochlorothiazide Transaminitis Mild Secondary to alcohol intake Hypercalcemia Likely secondary to dehydration Continue IV fluids Moderate persistent asthma No exacerbation Inhalers as needed Obesity class 2. BMI 39.6 Discussed importance of weight management as this may be contributing to worsening of other comorbidities DVT prophylaxis with heparin Full code Total time managing care of this patient today: 55 minutes. Quality Stroke Does the patient have a stroke diagnosis?: No VTE Prior VTE?: No VTE Risk Level:: Medical - moderate - high VTE Device Contraindication: Treatment Not Indicated VTE Drug Contraindication: N/A - Med Ordered
[2025-01-13] MEDS: oxyCODONE HCl Immed Release 5 MG TABLET PO (15:54)
--- NOTE | 2025-01-13 17:40 | PC.NURSE ---
Pt A&O x4. Independent in the room. Pt's pain has been difficult to control. MD adjusted meds several times. Pt's pain is now a 7/10, which is an improvement. Pt reports abdominal pain, back pain. Pain was worse after drinking fluids. CIWA scores have been <8.
--- NOTE | 2025-01-13 18:13 | PC.NURSE ---
Report called to [facility] H[facility]. Pt medicated before transfer. [facility] CPAP sent with patient.
[2025-01-13] MEDS: oxyCODONE HCl ER 10 MG TAB.ER.12H PO (20:32)
[2025-01-14] VITALS (9 sets, daily range): BP systolic 100–128; BP diastolic 55–67; PULSE 67–99; RESP 16–20; TEMP 36.5–37; O2SAT 95–97
[2025-01-14] MEDS: Lactated Ringers 1,000 ML 150 ML IVCONT ×4 (01:57→21:41)
[2025-01-14 06:11] LABS: MANUAL DIFF FLAG NO
[2025-01-14 06:21] LABS: Hematocrit 48.5 % (42.0-52.0); Hemoglobin 16.0 g/dl (14.0-18.0); Imm Gran Abs Auto 0.02 X10*3/uL (0.00-0.03); Imm Gran Pct Auto 0.3 % (0.0-0.4); Lymphocytes Absolute Auto 2.0 X10*3/uL (1.2-4.9); Mean Corpuscular HGB Conc 33.0 g/dl (31.0-36.0); Mean Corpuscular Hemoglobin 30.1 pg (27.0-33.0); Mean Corpuscular Volume 91.3 fL (80.0-98.0); NRBC Abs Auto 0.000 X10*3/uL (0.0-0.012); NRBC Pct Auto 0.0 /100WBC (0.0-0.2); Platelet Count 207 X10*3/uL (160-400); Red Blood Count 5.31 X10*6/uL (4.60-5.80); White Blood Count 7.1 X10*3/uL (4.8-10.8)
[2025-01-14 06:49] LABS: Alanine Aminotransferase 45 U/L (0-40); Albumin Level 4.5 g/dL (3.5-5.0); Alkaline Phosphatase 44 U/L (39-117); Anion Gap 17 (12-20); Aspartate Amino Transferase 44 U/L (5-37); Blood Urea Nitrogen 16 mg/dL (9-16); Calcium 9.5 mg/dL (8.4-10.2); Carbon Dioxide 29 mmol/L (22-29); Chloride 97 mmol/L (96-108); Creatinine Clr Calc Pharmacy 51.5; Estimated Glomerular Filt Rate 26; Magnesium 1.7 mg/dL (1.6-2.6); Potassium 4.0 mmol/L (3.3-5.1); Sodium 139 mmol/L (135-145); Total Protein 7.2 g/dL (6.5-8.0)
[2025-01-14] MEDS: Metoprolol Succinate ER 50 MG TAB.ER.24H PO (07:55)
[2025-01-14] MEDS: oxyCODONE HCl Immed Release 5 MG TABLET PO (07:56)
[2025-01-14] MEDS: oxyCODONE HCl ER 10 MG TAB.ER.12H PO ×2 (07:56→21:36)
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
[2025-01-14] MEDS: Fluticasone/Vilanterol 100/25 BLST.W.DEV 1 PUFF INHALE (11:12)
--- NOTE | 2025-01-14 18:16 | P.PNIM_ITS ---
Subjective Subjective Date of Service: 01/14/25 Interval History: MRCP done -Acute pancreatitis with increasing fat stranding surrounding the pancreas, inflammatory change and fluid in the small bowel mesentery, left anterior pararenal space and left paracolic gutter and small amount of generalized ascites. There is mild dilatation of the main pancreatic duct with a beaded appearance and adjacent numerous small cysts probably representing dilated pancreatic side branch duct radicles. New 2 cm complex cystic lesion in the uncinate process of the pancreas. Slightly high signal on T1-weighted sequences suggestive of proteinaceous fluid or hemorrhage. This demonstrates multiple thickened septations with some wall and septal enhancement. This may represent a pseudocyst or abscess. Imaging follow-up recommended. Generalized ileus. Increasing inflammatory change in the root of the small bowel mesentery and mild wall thickening of multiple loops of small bowel and increased wall enhancement. This may be reactive to pancreatitis. Differential would include enteritis. No evidence of vascular compromise is seen. Review of Systems Review of Systems: Yes all other systems are reviewed and are negative Physical Exam 2 Exam: Exam: General: AxOx3, wearing CPAP/BiPaP machine CVS; RRR, S1 S2 normal Lungs: Clear bilateral breath sounds, no wheezes or crackles Abd: Tender to light palpation Ext: No edema and no calf tenderness MSK: moving all 4 limbs Skin: No cyanosis or edema Psych: Cooperative with exam Neurology: no focal deficit Vital Signs: Vital Signs: Last Vital Signs Temp 97.7 F 01/14/25 15:37 Pulse 73 01/14/25 11:30 Resp 20 01/14/25 18:09 BP 128/67 01/14/25 15:37 Pulse Ox 95 01/14/25 15:37 O2 Del Method Room Air 01/14/25 15:37 O2 Flow Rate 2 01/14/25 00:00 BMI result Body Mass Index 39.6 Objective Data Active Medications Acetaminophen (Acetaminophen 325 Mg Tablet) 650 mg PO Q6H PRN PRN Reason: Pain, Mild 1-3,fever,headache Albuterol Sulfate (Albuterol Sulfate 90 Mcg 8 Gm Inhaler) 2 puff INHALE Q6H PRN PRN Reason: Dyspnea Albuterol/Ipratropium (Albuterol/Iprat 2.5/0.5mg 3 Ml Ampul.Neb) 3 ml INHALE RQ6H WHILE AWAKE PRN PRN Reason: Shortness of Breath/Wheezing Last Admin: 01/13/25 09:44 Dose: 3 ml Documented By: WILLIAM Calcium Carbonate (Calcium Carbonate 750 Mg Tab.Chew) 750 mg PO Q4H PRN PRN Reason: Heartburn Fluticasone/Vilanterol (Fluticasone/Vilanterol 100/25 Blst.W.Dev) 1 puff INHALE RDAILY [facility] Last Admin: 01/14/25 11:12 Dose: 1 puff Documented By: ELISEO Folic Acid (Folic Acid 1 Mg Tablet) 1 mg PO DAILY [facility] Last Admin: 01/14/25 07:56 Dose: 1 mg Documented By: GUSTAVO Heparin Sodium (Porcine) (Heparin Sodium,Porcine 5,000 Unit/Ml Vial) 5,000 unit SUBCUT Q12H [facility] Last Admin: 01/14/25 09:04 Dose: 5,000 unit Documented By: GUSTAVO Hydrochlorothiazide (Hydrochlorothiazide 12.5 Mg Tablet) 12.5 mg PO DAILY [facility] Last Admin: 01/14/25 07:55 Dose: 12.5 mg Documented By: GUSTAVO Hydromorphone HCl (Hydromorphone Hcl 2 Mg/Ml Vial) 2 mg IVPUSH Q3H PRN; Protocol PRN Reason: Pain, Severe (Pain Scale 7-10) Last Admin: 01/14/25 18:09 Dose: 2 mg Documented By: YU Lactated Ringer's (Lr) 1,000 mls @ 150 mls/hr IVCONT .Q6H40M [facility] Last Admin: 01/14/25 13:46 Dose: 150 mls/hr Documented By: GUSTAVO Lisinopril (Lisinopril 20 Mg Tablet) 20 mg PO DAILY [facility] Last Admin: 01/14/25 07:55 Dose: 20 mg Documented By: GUSTAVO Magnesium Hydroxide (Milk Of Magnesia 30 Ml Oral.Susp) 30 ml PO DAILY PRN PRN Reason: Constipation Melatonin (Melatonin 3 Mg Tablet) 6 mg PO BEDTIME PRN PRN Reason: Insomnia Metoprolol Succinate (Metoprolol Succinate Er 50 Mg Tab.Er.24h) 50 mg PO DAILY [facility]; Protocol Last Admin: 01/14/25 07:55 Dose: 50 mg Documented By: GUSTAVO Multivitamins/Vitamin C (Multivitamin Tablet) 1 tab PO DAILY [facility] Last Admin: 01/14/25 07:55 Dose: 1 tab Documented By: GUSTAVO Ondansetron HCl (Ondansetron Hcl 4 Mg/2 Ml Vial) 4 mg IVPUSH Q8H PRN PRN Reason: Nausea and Vomiting Oxycodone HCl (Oxycodone Hcl Immed Release 5 Mg Tablet) 5 mg PO Q6H PRN PRN Reason: Pain, Moderate(Pain Scale 4-6) Last Admin: 01/14/25 07:56 Dose: 5 mg Documented By: GUSTAVO Oxycodone HCl (Oxycodone Hcl Er 10 Mg Tab.Er.12h) 10 mg PO BID [facility] Last Admin: 01/14/25 07:56 Dose: 10 mg Documented By: GUSTAVO Pharmacy Consult (Consult Rx Etoh Phenob Im/Po) 1 each MISCELLANE ONCE PRN; Protocol PRN Reason: Consult order Phenobarbital (Phenobarbital 30 Mg Tablet) 30 mg PO BID [facility] Stop: 01/16/25 09:01 Phenobarbital (Phenobarbital 30 Mg Tablet) 30 mg PO BEDTIME [facility] Stop: 01/17/25 21:01 Sodium Chloride (0.9 % Sodium Chloride Flush 3 Ml Syringe) 3 ml IVFLUSH QSHIFT [facility] Last Admin: 01/14/25 15:29 Dose: Not Given Documented By: GUSTAVO Non-Admin Reason: IV Running Thiamine HCl (Thiamine Hcl 100 Mg Tablet) 100 mg PO DAILY [facility] Last Admin: 01/14/25 07:55 Dose: 100 mg Documented By: GUSTAVO Labs 01/14/25 05:31 01/14/25 05:31 Labs: Laboratory Results - last 24 hr 01/14/25 05:31 MCV 91.3 MCH 30.1 MCHC 33.0 RDW 12.6 Plt Count 207 D MPV 11.9 Immature Gran % (Auto) 0.3 Neut % (Auto) 59.1 Lymph % (Auto) 27.6 [place] % (Auto) 10.9 Eos % (Auto) 1.7 Baso % (Auto) 0.4 Lymph # (Auto) 2.0 [place] # (Auto) 0.8 Eos # (Auto) 0.1 Baso # (Auto) 0.0 Abs Immat Gran (auto) 0.02 Absolute Neuts (auto) 4.2 Absolute Nucleated RBC 0.000 Nucleated RBC % (auto) 0.0 Anion Gap 17 Estim Creat Clear Calc 51.5 Estimated GFR 26 Random Glucose 143 H Calcium 9.5 Magnesium 1.7 Total Bilirubin 0.7 AST 44 H ALT 45 H Alkaline Phosphatase 44 Total Protein 7.2 Albumin 4.5 Assessment and Plan (1) Alcohol use disorder: Status: Acute (2) Acute pancreatitis: Status: Acute Plan 34 year old man admitted with acute pancreatitis secondary to alcohol intake Acute Pancreatitis likely secondary to alcohol intake Abdominal CT showing acute pancreatitis with hypodense lesion in the head of the pancreas lipase normal MRCP- pancreatitis at risk of developing peng-pancreatic cyst Adjusted pain medication to dilaudid 2mg IV q3h, given worsening pain, will also initiate extended release Oxycontin 10mg. will slowly taper off once pain improves GI consulted Clear liquid diet for now, advance as tolerated Alcohol abuse Patient denies any history of withdrawal symptoms including seizures Continue phenobarbital protocol Thiamine, multivitamin and folic acid Addiction consultation CIWA protocol Hypertension, at this time likely elevated due to pain Continue lisinopril, metoprolol and hydrochlorothiazide Transaminitis Mild Secondary to alcohol intake Hypercalcemia Likely secondary to dehydration Continue IV fluids Moderate persistent asthma No exacerbation Inhalers as needed Obesity class 2. BMI 39.6 Discussed importance of weight management as this may be contributing to worsening of other comorbidities DVT prophylaxis with heparin Full code This note is constructed using voice recognition software. While every effort has been made to ensure accuracy, manager human resources errors may have been included. Total time managing care of this patient today: 55 minutes. Quality Stroke Does the patient have a stroke diagnosis?: No VTE Prior VTE?: No VTE Risk Level:: Medical - moderate - high VTE Device Contraindication: Treatment Not Indicated VTE Drug Contraindication: N/A - Med Ordered
--- NOTE | 2025-01-14 19:45 | PM.EVENT ---
Event Note Date of Service: 01/14/25 Event Note: Nursing reported that earlier IV infiltrated and pt did not receive the full effect of dilaudid IV for current pancreatitis. BP currently 114 systolic and ordered 1 mg Dilaudid X1 now. Also made pt NPO as he states his pain is worse when he eats. Pt can have ice chips and can take medications. Time Spent With Patient Time: Total time managing care of this patient today ____ minutes.
[2025-01-15] VITALS (7 sets, daily range): BP systolic 112–136; BP diastolic 57–93; PULSE 62–88; RESP 16–19; TEMP 36.2–37.1; O2SAT 93–98
[2025-01-15] MEDS: Lactated Ringers 1,000 ML 150 ML IVCONT ×3 (04:12→19:12)
[2025-01-15 07:08] LABS: Hematocrit 41.4 % (42.0-52.0); Hemoglobin 14.4 g/dl (14.0-18.0); Imm Gran Abs Auto 0.02 X10*3/uL (0.00-0.03); Imm Gran Pct Auto 0.4 % (0.0-0.4); Lymphocytes Absolute Auto 1.4 X10*3/uL (1.2-4.9); MANUAL DIFF FLAG SCAN; Mean Corpuscular HGB Conc 34.8 g/dl (31.0-36.0); Mean Corpuscular Hemoglobin 30.8 pg (27.0-33.0); Mean Corpuscular Volume 88.5 fL (80.0-98.0); NRBC Abs Auto 0.000 X10*3/uL (0.0-0.012); NRBC Pct Auto 0.0 /100WBC (0.0-0.2); PLT CLUMP 1; Red Blood Count 4.68 X10*6/uL (4.60-5.80); SCAN SMEAR FLAG 1
[2025-01-15 07:18] LABS: Alanine Aminotransferase 43 U/L (0-40); Albumin Level 4.6 g/dL (3.5-5.0); Alkaline Phosphatase 46 U/L (39-117); Anion Gap 17 (12-20); Aspartate Amino Transferase 38 U/L (5-37); Blood Urea Nitrogen 16 mg/dL (9-16); Calcium 9.7 mg/dL (8.4-10.2); Carbon Dioxide 23 mmol/L (22-29); Chloride 101 mmol/L (96-108); Creatinine Clr Calc Pharmacy 91.0; Estimated Glomerular Filt Rate 50; Magnesium 1.7 mg/dL (1.6-2.6); Potassium 4.1 mmol/L (3.3-5.1); Sodium 137 mmol/L (135-145); Total Protein 7.4 g/dL (6.5-8.0)
--- NOTE | 2025-01-15 07:54 | HO.PM.IMPN ---
Subjective Subjective Date of Service: 01/15/25 Interval History: Patient could not tolerate p.o. intake hence we will continue trialing liquid diet as tolerated Review of Systems Review of Systems: Yes all other systems are reviewed and are negative Physical Exam Exam: Exam: General: AxOx3, wearing CPAP/BiPaP machine CVS; RRR, S1 S2 normal Lungs: Clear bilateral breath sounds, no wheezes or crackles Abd: Tender to light palpation Ext: No edema and no calf tenderness MSK: moving all 4 limbs Skin: No cyanosis or edema Psych: Cooperative with exam Neurology: no focal deficit Vital Signs: Vital Signs: Last Vital Signs Temp 98.4 F 01/15/25 07:23 Pulse 78 01/15/25 07:23 Resp 18 01/15/25 07:23 BP 130/66 01/15/25 07:23 Pulse Ox 94 01/15/25 07:23 O2 Del Method Room Air 01/15/25 07:23 O2 Flow Rate 2 01/14/25 00:00 BMI result Body Mass Index 39.6 Objective Data Active Medications Acetaminophen (Acetaminophen 325 Mg Tablet) 650 mg PO Q6H PRN PRN Reason: Pain, Mild 1-3,fever,headache Albuterol Sulfate (Albuterol Sulfate 90 Mcg 8 Gm Inhaler) 2 puff INHALE Q6H PRN PRN Reason: Dyspnea Albuterol/Ipratropium (Albuterol/Iprat 2.5/0.5mg 3 Ml Ampul.Neb) 3 ml INHALE RQ6H WHILE AWAKE PRN PRN Reason: Shortness of Breath/Wheezing Last Admin: 01/13/25 09:44 Dose: 3 ml Documented By: WILLIAM Calcium Carbonate (Calcium Carbonate 750 Mg Tab.Chew) 750 mg PO Q4H PRN PRN Reason: Heartburn Fluticasone/Vilanterol (Fluticasone/Vilanterol 100/25 Blst.W.Dev) 1 puff INHALE RDAILY [facility] Last Admin: 01/14/25 11:12 Dose: 1 puff Documented By: ELISEO Folic Acid (Folic Acid 1 Mg Tablet) 1 mg PO DAILY [facility] Last Admin: 01/14/25 07:56 Dose: 1 mg Documented By: GUSTAVO Heparin Sodium (Porcine) (Heparin Sodium,Porcine 5,000 Unit/Ml Vial) 5,000 unit SUBCUT Q12H [facility] Last Admin: 01/14/25 21:38 Dose: 5,000 unit Documented By: NILE Hydrochlorothiazide (Hydrochlorothiazide 12.5 Mg Tablet) 12.5 mg PO DAILY [facility] Last Admin: 01/14/25 07:55 Dose: 12.5 mg Documented By: GUSTAVO Hydromorphone HCl (Hydromorphone Hcl 2 Mg/Ml Vial) 2 mg IVPUSH Q3H PRN; Protocol PRN Reason: Pain, Severe (Pain Scale 7-10) Last Admin: 01/15/25 06:03 Dose: 2 mg Documented By: ALONDRA Lactated Ringer's (Lr) 1,000 mls @ 150 mls/hr IVCONT .Q6H40M [facility] Last Admin: 01/15/25 04:12 Dose: 150 mls/hr Documented By: ALONDRA Lisinopril (Lisinopril 20 Mg Tablet) 20 mg PO DAILY [facility] Last Admin: 01/14/25 07:55 Dose: 20 mg Documented By: GUSTAVO Magnesium Hydroxide (Milk Of Magnesia 30 Ml Oral.Susp) 30 ml PO DAILY PRN PRN Reason: Constipation Melatonin (Melatonin 3 Mg Tablet) 6 mg PO BEDTIME PRN PRN Reason: Insomnia Metoprolol Succinate (Metoprolol Succinate Er 50 Mg Tab.Er.24h) 50 mg PO DAILY [facility]; Protocol Last Admin: 01/14/25 07:55 Dose: 50 mg Documented By: GUSTAVO Multivitamins/Vitamin C (Multivitamin Tablet) 1 tab PO DAILY [facility] Last Admin: 01/14/25 07:55 Dose: 1 tab Documented By: GUSTAVO Ondansetron HCl (Ondansetron Hcl 4 Mg/2 Ml Vial) 4 mg IVPUSH Q8H PRN PRN Reason: Nausea and Vomiting Oxycodone HCl (Oxycodone Hcl Immed Release 5 Mg Tablet) 5 mg PO Q6H PRN PRN Reason: Pain, Moderate(Pain Scale 4-6) Last Admin: 01/14/25 07:56 Dose: 5 mg Documented By: GUSTAVO Oxycodone HCl (Oxycodone Hcl Er 10 Mg Tab.Er.12h) 10 mg PO BID [facility] Last Admin: 01/14/25 21:36 Dose: 10 mg Documented By: NILE Pharmacy Consult (Consult Rx Etoh Phenob Im/Po) 1 each MISCELLANE ONCE PRN; Protocol PRN Reason: Consult order Phenobarbital (Phenobarbital 30 Mg Tablet) 30 mg PO BID [facility] Stop: 01/16/25 09:01 Last Admin: 01/14/25 21:38 Dose: 30 mg Documented By: NILE Phenobarbital (Phenobarbital 30 Mg Tablet) 30 mg PO BEDTIME [facility] Stop: 01/17/25 21:01 Sodium Chloride (0.9 % Sodium Chloride Flush 3 Ml Syringe) 3 ml IVFLUSH QSHIFT [facility] Last Admin: 01/15/25 00:39 Dose: Not Given Documented By: ALONDRA Non-Admin Reason: IV Running Thiamine HCl (Thiamine Hcl 100 Mg Tablet) 100 mg PO DAILY [facility] Last Admin: 01/14/25 07:55 Dose: 100 mg Documented By: GUSTAVO Labs 01/15/25 06:03 01/15/25 06:03 Labs: Laboratory Results - last 24 hr 01/15/25 06:03 Anion Gap 17 Estim Creat Clear Calc 91.0 Estimated GFR 50 Random Glucose 113 Calcium 9.7 Magnesium 1.7 Total Bilirubin 0.7 AST 38 H ALT 43 H Alkaline Phosphatase 46 Total Protein 7.4 Albumin 4.6 Assessment and Plan (1) Alcohol use disorder: Status: Acute (2) Acute pancreatitis: Status: Acute Plan 34 year old man admitted with acute pancreatitis secondary to alcohol intake Acute Pancreatitis likely secondary to alcohol intake Abdominal CT showing acute on chronic pancreatitis with hypodense lesion in the head of the pancreas,MRCP- pancreatitis at risk of developing peng-pancreatic cyst Failed liquid diet challenge , requiring pain meds and need to rechallenge Adjusted pain medication to dilaudid 2mg IV q3h, given persistent pain and inability to tolerate p.o., continue Oxycontin 10mg. Unable to wean today Alcohol abuse continue phenobarb protocol, thiamine folic acid, addiction consult, [facility] Hypertension, at this time likely elevated due to pain-Continue lisinopril, metoprolol and hydrochlorothiazide Transaminitis Mild Secondary to alcohol intake Hypercalcemia Likely secondary to dehydration Continue IV fluids Moderate persistent asthma No exacerbation Inhalers as needed Obesity class 2. BMI 39.6 Discussed importance of weight management as this may be contributing to worsening of other comorbidities DVT prophylaxis with heparin Full code This note is constructed using voice recognition software. While every effort has been made to ensure accuracy, home stager errors may have been included. Total time managing care of this patient today: 55 minutes. Quality Stroke Does the patient have a stroke diagnosis?: No VTE Prior VTE?: No VTE Risk Level:: Medical - moderate - high VTE Device Contraindication: Treatment Not Indicated VTE Drug Contraindication: N/A - Med Ordered
[2025-01-15] MEDS: Fluticasone/Vilanterol 100/25 BLST.W.DEV 1 PUFF INHALE (08:06)
[2025-01-15 08:23] LABS: White Blood Count 5.6 X10*3/uL (4.8-10.8)
[2025-01-15 08:24] LABS: Platelet Count 139 X10*3/uL (160-400)
[2025-01-15] MEDS: Metoprolol Succinate ER 50 MG TAB.ER.24H PO (09:58)
[2025-01-15] MEDS: oxyCODONE HCl ER 10 MG TAB.ER.12H PO ×2 (09:59→21:24)
--- NOTE | 2025-01-15 10:36 | MHC.CM.PN ---
Patient not medically cleared for dc. DC plan remains home self care. CM will continue to follow.
[2025-01-15] MEDS: 0.9 % Sodium Chloride Flush 3 ML SYRINGE IVFLUSH (15:57)
[2025-01-16] VITALS (9 sets, daily range): BP systolic 108–156; BP diastolic 54–82; PULSE 62–92; RESP 16–19; TEMP 36.1–36.7; O2SAT 93–100
[2025-01-16] MEDS: Lactated Ringers 1,000 ML 150 ML IVCONT ×2 (01:46→08:42)
--- NOTE | 2025-01-16 07:21 | P.PNIM_ITS ---
Subjective Subjective Date of Service: 01/16/25 Interval History: Pain meds being titrated Challenging him with liquid diet Explained in detail about the imaging scan-however patient stated to the RN that he needed to know the results Physical Exam 2 Exam: Exam: General: AxOx3, wearing CPAP/BiPaP machine at the time of my examination in the a.m. CVS; RRR, S1 S2 normal Lungs: Clear bilateral breath sounds, no wheezes or crackles Abd: Decreased tenderness to light palpation Vital Signs: Vital Signs: Last Vital Signs Temp 98.1 F 01/16/25 03:44 Pulse 62 01/16/25 03:44 Resp 16 01/16/25 03:44 BP 113/57 L 01/16/25 03:44 Pulse Ox 93 01/16/25 03:44 O2 Del Method CPAP 01/16/25 03:44 O2 Flow Rate 2 01/14/25 00:00 BMI result Body Mass Index 39.6 Objective Data Active Medications Acetaminophen (Acetaminophen 325 Mg Tablet) 650 mg PO Q6H PRN PRN Reason: Pain, Mild 1-3,fever,headache Albuterol Sulfate (Albuterol Sulfate 90 Mcg 8 Gm Inhaler) 2 puff INHALE Q6H PRN PRN Reason: Dyspnea Albuterol/Ipratropium (Albuterol/Iprat 2.5/0.5mg 3 Ml Ampul.Neb) 3 ml INHALE RQ6H WHILE AWAKE PRN PRN Reason: Shortness of Breath/Wheezing Last Admin: 01/13/25 09:44 Dose: 3 ml Documented By: WILLIAM Calcium Carbonate (Calcium Carbonate 750 Mg Tab.Chew) 750 mg PO Q4H PRN PRN Reason: Heartburn Fluticasone/Vilanterol (Fluticasone/Vilanterol 100/25 Blst.W.Dev) 1 puff INHALE RDAILY COUNT INCLUDES THE [facility] Last Admin: 01/15/25 08:06 Dose: 1 puff Documented By: PETTY Folic Acid (Folic Acid 1 Mg Tablet) 1 mg PO DAILY COUNT INCLUDES THE [facility] Last Admin: 01/15/25 10:02 Dose: 1 mg Documented By: JOSE ANGEL Heparin Sodium (Porcine) (Heparin Sodium,Porcine 5,000 Unit/Ml Vial) 5,000 unit SUBCUT Q12H COUNT INCLUDES THE [facility] Last Admin: 01/15/25 21:24 Dose: 5,000 unit Documented By: ALONDRA Hydrochlorothiazide (Hydrochlorothiazide 12.5 Mg Tablet) 12.5 mg PO DAILY COUNT INCLUDES THE [facility] Last Admin: 01/15/25 09:58 Dose: 12.5 mg Documented By: JOSE ANGEL Hydromorphone HCl (Hydromorphone Hcl 2 Mg/Ml Vial) 2 mg IVPUSH Q3H PRN; Protocol PRN Reason: Pain, Severe (Pain Scale 7-10) Last Admin: 01/16/25 06:28 Dose: 2 mg Documented By: DENISE Lactated Ringer's (Lr) 1,000 mls @ 150 mls/hr IVCONT .Q6H40M COUNT INCLUDES THE [facility] Last Admin: 01/16/25 05:14 Dose: Not Given Documented By: DENISE Non-Admin Reason: IV Running Lisinopril (Lisinopril 20 Mg Tablet) 20 mg PO DAILY COUNT INCLUDES THE [facility] Last Admin: 01/15/25 09:59 Dose: 20 mg Documented By: JOSE ANGEL Magnesium Hydroxide (Milk Of Magnesia 30 Ml Oral.Susp) 30 ml PO DAILY PRN PRN Reason: Constipation Magnesium Oxide (Magnesium Oxide 400 Mg Tablet) 400 mg PO DAILY COUNT INCLUDES THE [facility] Last Admin: 01/15/25 09:58 Dose: 400 mg Documented By: JOSE ANGEL Melatonin (Melatonin 3 Mg Tablet) 6 mg PO BEDTIME PRN PRN Reason: Insomnia Metoprolol Succinate (Metoprolol Succinate Er 50 Mg Tab.Er.24h) 50 mg PO DAILY COUNT INCLUDES THE [facility]; Protocol Last Admin: 01/15/25 09:58 Dose: 50 mg Documented By: JOSE ANGEL Multivitamins/Vitamin C (Multivitamin Tablet) 1 tab PO DAILY COUNT INCLUDES THE [facility] Last Admin: 01/15/25 09:58 Dose: 1 tab Documented By: JOSE ANGEL Ondansetron HCl (Ondansetron Hcl 4 Mg/2 Ml Vial) 4 mg IVPUSH Q8H PRN PRN Reason: Nausea and Vomiting Oxycodone HCl (Oxycodone Hcl Immed Release 5 Mg Tablet) 5 mg PO Q6H PRN PRN Reason: Pain, Moderate(Pain Scale 4-6) Last Admin: 01/14/25 07:56 Dose: 5 mg Documented By: GUSTAVO Oxycodone HCl (Oxycodone Hcl Er 10 Mg Tab.Er.12h) 10 mg PO BID COUNT INCLUDES THE [facility] Last Admin: 01/15/25 21:24 Dose: 10 mg Documented By: ALONDRA Pharmacy Consult (Consult Rx Etoh Phenob Im/Po) 1 each MISCELLANE ONCE PRN; Protocol PRN Reason: Consult order Phenobarbital (Phenobarbital 30 Mg Tablet) 30 mg PO BID COUNT INCLUDES THE [facility] Stop: 01/16/25 09:01 Last Admin: 01/15/25 21:24 Dose: 30 mg Documented By: ALONDRA Phenobarbital (Phenobarbital 30 Mg Tablet) 30 mg PO BEDTIME COUNT INCLUDES THE [facility] Stop: 01/17/25 21:01 Sodium Chloride (0.9 % Sodium Chloride Flush 3 Ml Syringe) 3 ml IVFLUSH QSHIFT COUNT INCLUDES THE [facility] Last Admin: 01/15/25 23:29 Dose: Not Given Documented By: DENISE Non-Admin Reason: Previously Administered Thiamine HCl (Thiamine Hcl 100 Mg Tablet) 100 mg PO DAILY COUNT INCLUDES THE [facility] Last Admin: 01/15/25 09:58 Dose: 100 mg Documented By: JOSE ANGEL Labs 01/16/25 07:42 01/16/25 07:42 Labs: Laboratory Results - last 24 hr 01/15/25 06:03 MCV 88.5 MCH 30.8 MCHC 34.8 RDW 12.5 Plt Count 139 L D MPV 13.0 H Immature Gran % (Auto) 0.4 Neut % (Auto) 61.8 Lymph % (Auto) 25.6 [place] % (Auto) 8.8 Eos % (Auto) 2.7 Baso % (Auto) 0.7 Lymph # (Auto) 1.4 [place] # (Auto) 0.5 Eos # (Auto) 0.2 Baso # (Auto) 0.0 Abs Immat Gran (auto) 0.02 Absolute Neuts (auto) 3.5 Absolute Nucleated RBC 0.000 Nucleated RBC % (auto) 0.0 Smear Tech's Comments VERIFIED Assessment and Plan (1) Alcohol use disorder: Status: Acute (2) Acute pancreatitis: Status: Acute Plan Day 5 34 year old man admitted with acute pancreatitis secondary to alcohol intake Acute Pancreatitis likely secondary to alcohol intake Abdominal CT POA showing acute on chronic pancreatitis with hypodense lesion in the head of the pancreas,MRCP- pancreatitis at risk of developing peng- pancreatic cyst Failed liquid diet challenge , requiring pain meds and need to rechallenge with liquid diet Need to wean his dilaudid - as its been challenging , we expect the pain to decrease , labs and examination dont correlate to the level of pain he is endorsing Current pain meds - TYLENOL 975 P.O. Q.6 SCHEDULED, OXYCONTIN 10 MG P.O. B.I.D., ROBAXIN OXYCODONE 5 MG P.O. Q.6 P.R.N., DILAUDID 1 MG IVP Q.6 P.R.N. We will start him on NSAIDs with PPI and sucralfate protection from tomorrow as he improves his dietary intake Plan to wean daily as narcotic induced constipation is also another etiology we would like to avoid Risk of GERD-PPI and sucralfate Alcohol abuse continue phenobarb protocol-he will finish protocol tomorrow, thiamine folic acid, addiction consult, CIWA Hypertension, at this time likely elevated due to pain-Continue lisinopril, metoprolol and hydrochlorothiazide Transaminitis Mild resolving Secondary to alcohol intake Hypercalcemia Resolved post fluids Moderate persistent asthma Not in exacerbation DEE CPAP Obesity class 2. BMI 39.6 Discussed importance of weight management as this may be contributing to worsening of other comorbidities DVT prophylaxis with heparin Full code This note is constructed using voice recognition software. While every effort has been made to ensure accuracy, meat specialist errors may have been included. Total time managing care of this patient today: 55 minutes. Quality Stroke Does the patient have a stroke diagnosis?: No VTE Prior VTE?: No VTE Risk Level:: Medical - moderate - high VTE Device Contraindication: Treatment Not Indicated VTE Drug Contraindication: N/A - Med Ordered
[2025-01-16 07:47] LABS: Hematocrit 42.3 % (42.0-52.0); Hemoglobin 13.6 g/dl (14.0-18.0); Imm Gran Abs Auto 0.01 X10*3/uL (0.00-0.03); Imm Gran Pct Auto 0.2 % (0.0-0.4); Lymphocytes Absolute Auto 1.1 X10*3/uL (1.2-4.9); MANUAL DIFF FLAG SCAN; Mean Corpuscular HGB Conc 32.2 g/dl (31.0-36.0); Mean Corpuscular Hemoglobin 30.2 pg (27.0-33.0); Mean Corpuscular Volume 94.0 fL (80.0-98.0); NRBC Abs Auto 0.000 X10*3/uL (0.0-0.012); NRBC Pct Auto 0.0 /100WBC (0.0-0.2); PLT CLUMP 1; Red Blood Count 4.50 X10*6/uL (4.60-5.80); SCAN SMEAR FLAG 1
[2025-01-16] MEDS: Fluticasone/Vilanterol 100/25 BLST.W.DEV 1 PUFF INHALE (08:02)
[2025-01-16 08:19] LABS: White Blood Count 4.5 X10*3/uL (4.8-10.8)
[2025-01-16 08:20] LABS: Alanine Aminotransferase 42 U/L (0-40); Albumin Level 4.5 g/dL (3.5-5.0); Alkaline Phosphatase 47 U/L (39-117); Anion Gap 17 (12-20); Aspartate Amino Transferase 39 U/L (5-37); Blood Urea Nitrogen 17 mg/dL (9-16); Calcium 9.6 mg/dL (8.4-10.2); Carbon Dioxide 26 mmol/L (22-29); Chloride 97 mmol/L (96-108); Creatinine Clr Calc Pharmacy 116.9; Estimated Glomerular Filt Rate > 60; Magnesium 1.7 mg/dL (1.6-2.6); Platelet Count 148 X10*3/uL (160-400); Potassium 4.0 mmol/L (3.3-5.1); Sodium 136 mmol/L (135-145); Total Protein 7.3 g/dL (6.5-8.0)
[2025-01-16] MEDS: oxyCODONE HCl ER 10 MG TAB.ER.12H PO ×2 (08:46→21:36)
[2025-01-16] MEDS: Metoprolol Succinate ER 50 MG TAB.ER.24H PO (08:47)
[2025-01-16] MEDS: 0.9 % Sodium Chloride Flush 3 ML SYRINGE IVFLUSH (19:08)
[2025-01-17] VITALS: BP 115/52; PULSE 58; RESP 16; TEMP 36.3; O2SAT 96
[2025-01-17 03:48] VITALS: BP 122/58; PULSE 55; RESP 16; TEMP 36.4; O2SAT 97
[2025-01-17 07:27] LABS: Alanine Aminotransferase 35 U/L (0-40); Albumin Level 4.0 g/dL (3.5-5.0); Alkaline Phosphatase 47 U/L (39-117); Aspartate Amino Transferase 34 U/L (5-37); Blood Urea Nitrogen 17 mg/dL (9-16); Calcium 9.1 mg/dL (8.4-10.2); Creatinine Clr Calc Pharmacy 113.2; Estimated Glomerular Filt Rate > 60; Magnesium 1.7 mg/dL (1.6-2.6); Total Protein 6.6 g/dL (6.5-8.0)
[2025-01-17] MEDS: Fluticasone/Vilanterol 100/25 BLST.W.DEV 1 PUFF INHALE (07:43)
[2025-01-17 07:45] VITALS: PULSE 78; RESP 16; O2SAT 97
[2025-01-17 07:45] LABS: Anion Gap 22 (12-20); Carbon Dioxide 16 mmol/L (22-29); Chloride 105 mmol/L (96-108); Potassium 4.6 mmol/L (3.3-5.1); Sodium 138 mmol/L (135-145)
--- NOTE | 2025-01-17 07:45 | HO.PM.IMPN ---
Subjective Subjective Date of Service: 01/17/25 Physical Exam Vital Signs: Vital Signs: Last Vital Signs Temp 97.5 F 01/17/25 03:48 Pulse 55 01/17/25 03:48 Resp 16 01/17/25 03:48 BP 122/58 L 01/17/25 03:48 Pulse Ox 97 01/17/25 03:48 O2 Del Method Room Air 01/17/25 03:48 O2 Flow Rate 2 01/14/25 00:00 BMI result Body Mass Index 39.6 Objective Data Active Medications Acetaminophen (Acetaminophen 325 Mg Tablet) 975 mg PO Q6H [facility] Last Admin: 01/17/25 06:30 Dose: 975 mg Documented By: GERMAN Albuterol Sulfate (Albuterol Sulfate 90 Mcg 8 Gm Inhaler) 2 puff INHALE Q6H PRN PRN Reason: Dyspnea Albuterol/Ipratropium (Albuterol/Iprat 2.5/0.5mg 3 Ml Ampul.Neb) 3 ml INHALE RQ6H WHILE AWAKE PRN PRN Reason: Shortness of Breath/Wheezing Last Admin: 01/13/25 09:44 Dose: 3 ml Documented By: WILLIAM Calcium Carbonate (Calcium Carbonate 750 Mg Tab.Chew) 750 mg PO Q4H PRN PRN Reason: Heartburn Fluticasone/Vilanterol (Fluticasone/Vilanterol 100/25 Blst.W.Dev) 1 puff INHALE RDAILY [facility] Last Admin: 01/16/25 08:02 Dose: 1 puff Documented By: PAPITO Folic Acid (Folic Acid 1 Mg Tablet) 1 mg PO DAILY [facility] Last Admin: 01/16/25 08:44 Dose: 1 mg Documented By: NAHED Heparin Sodium (Porcine) (Heparin Sodium,Porcine 5,000 Unit/Ml Vial) 5,000 unit SUBCUT Q12H [facility] Last Admin: 01/16/25 21:37 Dose: 5,000 unit Documented By: NILE Hydrochlorothiazide (Hydrochlorothiazide 12.5 Mg Tablet) 12.5 mg PO DAILY [facility] Last Admin: 01/16/25 08:45 Dose: 12.5 mg Documented By: NAHED Hydromorphone HCl (Hydromorphone Hcl 1 Mg/Ml Syringe) 1 mg IVPUSH Q6H PRN; Protocol PRN Reason: Breakthrough Pain Sodium Chloride (Ns) 1,000 mls @ 100 mls/hr IVCONT .Q10H [facility] Last Admin: 01/17/25 01:11 Dose: 100 mls/hr Documented By: GERMAN Ketorolac Tromethamine (Ketorolac Tromethamine 15 Mg/Ml Vial) 15 mg IVPUSH Q6H [facility] Last Admin: 01/17/25 07:36 Dose: 15 mg Documented By: BALTAZAR Lisinopril (Lisinopril 20 Mg Tablet) 20 mg PO DAILY [facility] Last Admin: 01/16/25 08:46 Dose: 20 mg Documented By: NAHED Magnesium Hydroxide (Milk Of Magnesia 30 Ml Oral.Susp) 30 ml PO DAILY PRN PRN Reason: Constipation Magnesium Oxide (Magnesium Oxide 400 Mg Tablet) 400 mg PO DAILY [facility] Last Admin: 01/16/25 08:47 Dose: 400 mg Documented By: NAHED Melatonin (Melatonin 3 Mg Tablet) 6 mg PO BEDTIME PRN PRN Reason: Insomnia Last Admin: 01/16/25 21:40 Dose: 6 mg Documented By: NILE Methocarbamol (Methocarbamol 750 Mg Tablet) 750 mg PO QID [facility] Last Admin: 01/16/25 21:36 Dose: 750 mg Documented By: NILE Metoprolol Succinate (Metoprolol Succinate Er 50 Mg Tab.Er.24h) 50 mg PO DAILY [facility]; Protocol Last Admin: 01/16/25 08:47 Dose: 50 mg Documented By: NAHED Multivitamins/Vitamin C (Multivitamin Tablet) 1 tab PO DAILY [facility] Last Admin: 01/16/25 08:46 Dose: 1 tab Documented By: NAHED Ondansetron HCl (Ondansetron Hcl 4 Mg/2 Ml Vial) 4 mg IVPUSH Q8H PRN PRN Reason: Nausea and Vomiting Oxycodone HCl (Oxycodone Hcl Immed Release 5 Mg Tablet) 5 mg PO Q6H PRN PRN Reason: Pain, Moderate(Pain Scale 4-6) Last Admin: 01/14/25 07:56 Dose: 5 mg Documented By: GUSTVAO Oxycodone HCl (Oxycodone Hcl Er 10 Mg Tab.Er.12h) 10 mg PO BID [facility] Last Admin: 01/16/25 21:36 Dose: 10 mg Documented By: NILE Pantoprazole Sodium (Pantoprazole Sodium 40 Mg/10 Ml Vial) 40 mg IVPUSH DAILY@0630 [facility] Last Admin: 01/17/25 06:31 Dose: 40 mg Documented By: GERMAN Pharmacy Consult (Consult Rx Etoh Phenob Im/Po) 1 each MISCELLANE ONCE PRN; Protocol PRN Reason: Consult order Phenobarbital (Phenobarbital 30 Mg Tablet) 30 mg PO BEDTIME [facility] Stop: 01/17/25 21:01 Last Admin: 01/16/25 21:36 Dose: 30 mg Documented By: NILE Sodium Chloride (0.9 % Sodium Chloride Flush 3 Ml Syringe) 3 ml IVFLUSH QSHIFT [facility] Last Admin: 01/17/25 07:38 Dose: Not Given Documented By: BALTAZAR Non-Admin Reason: Previously Administered Sucralfate (Sucralfate 1 Gm Tablet) 1 gm PO BIDAC [facility] Last Admin: 01/17/25 07:36 Dose: 1 gm Documented By: BALTAZAR Thiamine HCl (Thiamine Hcl 100 Mg Tablet) 100 mg PO DAILY [facility] Last Admin: 01/16/25 08:47 Dose: 100 mg Documented By: NAHED Labs 01/16/25 07:42 01/17/25 05:54 Labs: Laboratory Results - last 24 hr 01/16/25 01/17/25 07:42 05:54 MCV 94.0 D MCH 30.2 MCHC 32.2 RDW 12.6 Plt Count 148 L MPV 12.3 Immature Gran % (Auto) 0.2 Neut % (Auto) 61.8 Lymph % (Auto) 25.2 [place] % (Auto) 9.5 Eos % (Auto) 2.6 Baso % (Auto) 0.7 Lymph # (Auto) 1.1 L [place] # (Auto) 0.4 Eos # (Auto) 0.1 Baso # (Auto) 0.0 Abs Immat Gran (auto) 0.01 Absolute Neuts (auto) 2.8 Absolute Nucleated RBC 0.000 Nucleated RBC % (auto) 0.0 Smear Tech's Comments VERIFIED Anion Gap 17 Estim Creat Clear Calc 116.9 113.2 Estimated GFR > 60 > 60 Random Glucose 86 92 Calcium 9.6 9.1 Magnesium 1.7 1.7 Total Bilirubin 0.7 0.4 AST 39 H 34 ALT 42 H 35 Alkaline Phosphatase 47 47 Total Protein 7.3 6.6 Albumin 4.5 4.0 Quality Stroke Does the patient have a stroke diagnosis?: No VTE Prior VTE?: No VTE Risk Level:: Medical - moderate - high VTE Device Contraindication: Treatment Not Indicated VTE Drug Contraindication: N/A - Med Ordered
[2025-01-17 07:46] LABS: Hematocrit 37.0 % (42.0-52.0); Hemoglobin 12.9 g/dl (14.0-18.0); Imm Gran Abs Auto 0.01 X10*3/uL (0.00-0.03); Imm Gran Pct Auto 0.2 % (0.0-0.4); Lymphocytes Absolute Auto 1.5 X10*3/uL (1.2-4.9); MANUAL DIFF FLAG SCAN; Mean Corpuscular HGB Conc 34.9 g/dl (31.0-36.0); Mean Corpuscular Hemoglobin 30.3 pg (27.0-33.0); Mean Corpuscular Volume 86.9 fL (80.0-98.0); NRBC Abs Auto 0.000 X10*3/uL (0.0-0.012); NRBC Pct Auto 0.0 /100WBC (0.0-0.2); PLT CLUMP 1; Red Blood Count 4.26 X10*6/uL (4.60-5.80); SCAN SMEAR FLAG 1
[2025-01-17 07:47] LABS: White Blood Count 4.4 X10*3/uL (4.8-10.8)
[2025-01-17 08:00] VITALS: BP 131/79; PULSE 76; RESP 16; TEMP 36.4; O2SAT 99
[2025-01-17] MEDS: oxyCODONE HCl ER 10 MG TAB.ER.12H PO (08:30)
[2025-01-17] MEDS: Metoprolol Succinate ER 50 MG TAB.ER.24H PO (08:30)
[2025-01-17 09:39] LABS: Platelet Count 143 X10*3/uL (160-400)
[2025-01-17 11:38] VITALS: BP 137/73; PULSE 89; RESP 18; TEMP 36.3; O2SAT 98
--- NOTE | 2025-01-17 14:06 | P.DS_ITS ---
DS: Providers Provider Date of Service: 01/17/25 Date of admission: 01/12/25 07:35 Date of discharge: 01/17/25 Primary care physician: None Physician Consults: 01/12/25 09:37 Consult to Gastroenterology Routine Consulting Provider: [facility] Reason for consultation: pancreatic mass 01/12/25 09:43 Addiction Medicine Provider Routine Consulting Provider: Addiction Covering Reason for consultation: etoh 01/14/25 11:49 Consult to Comprehensive Care Routine Consulting Provider: [facility] DS: Diagnosis Discharge Diagnosis (1) Alcohol use disorder: Status: Acute (2) Acute pancreatitis: Status: Acute DS: Summary Hospital Course Hospital Course: Per H&P: Chief Complaint: abdominal pain 34-year-old man presented to the ER with complaints of abdominal pain over the last 3 days with nausea, vomiting and diarrhea. He reports that over the last several weeks he has been drinking very heavily and prior to that he had not drank for 3-4 months. He reported trying to eat which triggered the pain that he described in his right upper abdomen. Patient denies sick contact, recent travel, fever, chills, recent illness. Abdominal CT showing acute pancreatitis with mass on the pancreatic head, considering lipase is normal but patient obviously has severe abdominal pain. In the ER, he was given multiple doses of pain medication, IV fluid and Zofran. He will be admitted for further management and treatment of acute pancreatitis Hospital course: Day 6 34 year old man admitted with acute pancreatitis secondary to alcohol intake Acute Pancreatitis likely secondary to alcohol intake Abdominal CT POA showing acute on chronic pancreatitis with hypodense lesion in the head of the pancreas,MRCP- pancreatitis at risk of developing peng- pancreatic cyst Patient had failed liquid challenge for 3-4 days, and slowly as we titrated down the pain meds, on day 5 and 6, he tolerated solid diet without significant pain He is to see outpatient GI for his hypodense lesion in the head of the pancreas For pain regimen he is on PPI and NSAIDs, scheduled Tylenol , Robaxin Risk of GERD-PPI Alcohol abuse-completed phenobarb protocol, thiamine, folic acid, addiction Medicine consulted, patient to take naltrexone, patient advised to avoid any opioids for the next 7-10 days to prevent any interaction with naltrexone. Hypertension, at this time likely elevated due to pain-Continue lisinopril, metoprolol and hydrochlorothiazide Transaminitis Mild resolving Secondary to alcohol intake Hypercalcemia Resolved post fluids Moderate persistent asthma Not in exacerbation DEE CPAP home settings Obesity class 2. BMI 39.6 Discussed importance of weight management as this may be contributing to worsening of other comorbidities DVT prophylaxis with heparin Full code This note is constructed using voice recognition software. While every effort has been made to ensure accuracy, program advisor errors may have been included. Time spent discussing smoking cessation with patient: more than 10 minutes Status at Discharge Functional status at discharge: independent ambulation Overall status at discharge: patient is back to baseline Time Attestation Discharge Coordination Time (in mins): 65 Quality: Safe Use of Opioids Does Pt have an Active Cancer Diagnosis on the Problem List?: No Quality: Stroke Does the patient have a stroke diagnosis?: No Physical Exam Exam: Exam: General: AxOx3, wearing CPAP/BiPaP machine at the time of my examination in the a.m. CVS; RRR, S1 S2 normal Lungs: Clear bilateral breath sounds, no wheezes or crackles Abd: Decreased tenderness to light palpation Vital Signs: Vital Signs: Last Vital Signs Temp 97.4 F 01/17/25 11:38 Pulse 89 01/17/25 11:38 Resp 18 01/17/25 11:38 BP 137/73 01/17/25 11:38 Pulse Ox 98 01/17/25 11:38 O2 Del Method Room Air 01/17/25 11:38 O2 Flow Rate 2 01/14/25 00:00 BMI result Body Mass Index 39.6 DS: Data Data Completed and Pending Labs on day of discharge: Laboratory Results - last 24 hr 01/17/25 05:54 WBC 4.4 L RBC 4.26 L Hgb 12.9 L Hct 37.0 L MCV 86.9 D MCH 30.3 MCHC 34.9 RDW 12.0 Plt Count 143 L MPV 12.9 H Immature Gran % (Auto) 0.2 Neut % (Auto) 48.3 Lymph % (Auto) 34.4 [place] % (Auto) 13.4 H Eos % (Auto) 3.0 Baso % (Auto) 0.7 Lymph # (Auto) 1.5 [place] # (Auto) 0.6 Eos # (Auto) 0.1 Baso # (Auto) 0.0 Abs Immat Gran (auto) 0.01 Absolute Neuts (auto) 2.1 Absolute Nucleated RBC 0.000 Nucleated RBC % (auto) 0.0 Smear Tech's Comments VERIFIED Sodium 138 Potassium 4.6 Chloride 105 Carbon Dioxide 16 L Anion Gap 22 H BUN 17 H Creatinine 1.27 Estim Creat Clear Calc 113.2 Estimated GFR > 60 Random Glucose 92 Calcium 9.1 Magnesium 1.7 Total Bilirubin 0.4 AST 34 ALT 35 Alkaline Phosphatase 47 Total Protein 6.6 Albumin 4.0 Discharge Plan Discharge Anticipated Discharge Date/Time: 01/17/25 13:57 Patient Disposition: Home, Self-Care Discharge Diagnosis: Acute on chronic pancreatitis secondary to EtOH use disorder Referrals: [facility] [place] [Provider Group] - 1 Week [facility] [Provider Group] - 01/20/25 10:00 am Michelle Faust MD [Physician, Gastroenterology] - 1 Week [facility] [Primary Care Provider, Medical] - 1 Week Discharge Medications: New ipratropium-albuterol 0.5 mg-3 mg(2.5 mg base)/3 mL Solution For Nebulization 3 ml inhalation RQ6H WHILE AWAKE PRN (Reason: Shortness Of Breath/Wheezing) 30 Days Qty: 180 0RF methocarbamol 750 mg Tablet 750 mg PO QID 10 Days Qty: 40 0RF ketorolac 10 mg Tablet 10 mg PO Q6H 5 Days Qty: 20 0RF multivitamin [Daily-[place]] Tablet 1 tab PO DAILY 30 Days Qty: 30 3RF omeprazole 40 mg Capsule,Delayed Release(Dr/Ec) 40 mg PO DAILY@0630 15 Days Qty: 15 0RF folic acid 1 mg Tablet 1 mg PO DAILY 30 Days Qty: 30 3RF thiamine mononitrate (vit B1) 100 mg Tablet 100 mg PO DAILY 30 Days Qty: 30 3RF naltrexone 50 mg tablet 50 mg PO DAILY 28 Days Qty: 28 0RF Continued metoprolol succinate 50 mg tablet extended release 24 hr 1 tab PO DAILY polyethylene glycol 3350 17 gram/dose powder 17 g PO DAILY PRN (Reason: Constipation) niacin 500 mg Tablet 500 mg PO DAILY oxycodone 5 mg capsule 5 mg PO Q8H PRN (Reason: pain (scale score 7-10)) Qty: 10 0RF Rx Instructions: Partial Fill upon patient request. lisinopril-hydrochlorothiazide 20-12.5 mg tablet 1 tab PO DAILY Qty: 90 2RF albuterol sulfate 90 mcg/actuation HFA aerosol inhaler 2 puff inhalation Q6H PRN (Reason: dyspnea) Qty: 1 0RF budesonide-formoterol [Symbicort] 80-4.5 mcg/actuation HFA aerosol inhaler 2 inh INHALATION BID Qty: 1 0RF Discharge Orders: Discharge Order (Routine); Ordered 01/17/25 Ordered By: Amaya Varela Diet: Low salt diet Activity on Discharge: As tolerated Stand Alone Forms: Patient Portal Discharge page, Work/School Release Print Language: Ukrainian Care Plan Goals: Refrain from alcohol Please seek addiction Services Please take naltrexone that you have been prescribed Please refrain from any opioids while taking this for at least 7-10 days prior to reinitiating naltrexone Please seek medical care if needed For your pancreatic mass please follow up with the GI Services outpatient Health Concerns: See above Plan of Treatment: See above Assessment: See above
[2025-01-17 15:02] VITALS: BP 129/61; PULSE 83; RESP 16; TEMP 36.1; O2SAT 97
--- NOTE | 2025-01-17 16:11 | MHC.CM.PN ---
PT CLEARED TO DC HOME TODAY WITH NO SERVICES
== END 2025-01-17 15:17 | disposition home or self-care (01) | DRG 282 ==
LOC: HO.ED 06:55 → HO.EDOVER 07:44 → HO.IMC 12:19 → HO.S3 01-13 18:01
PROVIDERS: Emergency Medicine; Nurse Practitioner Acute Care; Physician Assistant Medical; Admitting Provider Internal Medicine; Emergency Provider Emergency Medicine Emergency Medical Services; Visit Provider Student in an Organized Health Care Education/Training Program
DX: K85.20 Alcohol induced acute pancreatitis without necrosis or infection (principal); E66.812 Obesity, class 2; F10.10 Alcohol abuse, uncomplicated; E86.0 Dehydration; E83.52 Hypercalcemia; K86.0 Alcohol-induced chronic pancreatitis; I10 Essential (primary) hypertension; J45.40 Moderate persistent asthma, uncomplicated; Z71.3 Dietary counseling and surveillance; Z68.39 Body mass index [BMI] 39.0-39.9, adult; Z87.891 Personal history of nicotine dependence; Z79.899 Other long term (current) drug therapy
CPT/HCPCS: 36415; 74177; 74183; 80048; 80053; 81001; 83690; 83735; 85025; 85027; 94640; 94660; 99285; A9585; J1171; J1644; J1885; J2405; J2470; J2560; J7120; Q9967; S9485

== ENCOUNTER → 2025-01-12 03:40 | Outpatient (BNV) | payer MEDICAID, SELFPAY | PROVIDERS: Emergency Provider Emergency Medicine Emergency Medical Services; Visit Provider Radiology Diagnostic Radiology | DX: R10.11 Right upper quadrant pain (principal) | CPT/HCPCS: 74177 ==

== ENCOUNTER 2025-01-12 07:35 | Outpatient (BNV) | payer MEDICAID, SELFPAY | END 2025-01-14 11:59 | PROVIDERS: Admitting Provider Internal Medicine; Emergency Provider Emergency Medicine Emergency Medical Services; Visit Provider Radiology Diagnostic Radiology | DX: K85.90 Acute pancreatitis without necrosis or infection, unspecified (principal); R18.8 Other ascites; K56.7 Ileus, unspecified | CPT/HCPCS: 74183 ==

== ENCOUNTER → 2025-01-12 07:35 | Outpatient (BNV) | payer OTHER, SELFPAY | PROVIDERS: Admitting Provider Internal Medicine; Emergency Provider Emergency Medicine Emergency Medical Services; Visit Provider Nurse Practitioner Psychiatric/Mental Health | DX: F10.90 Alcohol use, unspecified, uncomplicated (principal) | CPT/HCPCS: 99231 ==

== ENCOUNTER → 2025-01-12 07:35 | Outpatient (BNV) | payer MEDICAID, SELFPAY | PROVIDERS: Admitting Provider Internal Medicine; Emergency Provider Emergency Medicine Emergency Medical Services; Visit Provider Nurse Practitioner Acute Care | DX: F10.90 Alcohol use, unspecified, uncomplicated (principal); K85.90 Acute pancreatitis without necrosis or infection, unspecified | CPT/HCPCS: 99223; 99233; 99499 ==

== ENCOUNTER 2025-01-20 10:29 | Outpatient (AMB) | payer OTHER, SELFPAY ==
[2025-01-20 10:32] VITALS: PULSE 84; O2SAT 98; BMI 40.1
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
--- OUTSIDE RECORDS SUMMARY | 2025-01-20 13:17 | XMS_ITS | Clinical Summary ---
Author Organization [facility] Address [address] [place] [address] Phone Care Team Providers Care Primary Care Nurse Practitioner Name Role Phone Physician, Pcp Unknown Primary [...] EDT - 10/28/2024 1:10 PM EDT Emergency [facility] Emergency [address] [place] [address] Discharge Disposition: Home or Self [...] LAB CHEMISTRY METHOD 02/07/2024 2:43 AM EST [facility] Potassium 3.9 3.5 - 5.5 mmol/L LAB CHEMISTRY METHOD 02/07/2024 2:43 AM EST [facility] Chloride 102 96 - 110 mmol/L LAB CHEMISTRY METHOD 02/07/2024 2:43 AM EST [facility] CO2 28 21 - 32 mmol/L LAB CHEMISTRY METHOD 02/07/2024 2:43 AM EST [facility] Anion Gap 5 3 - 11 LAB CHEMISTRY METHOD 02/07/2024 2:43 AM [facility] Glucose 156(H) 70 - 100 mg/dL LAB CHEMISTRY METHOD 02/07/2024 2:43 AM [facility] BUN 7 5 - 25 mg/dL LAB CHEMISTRY METHOD 02/07/2024 2:43 AM [facility] Creatinine 1.22 0.70 - 1.30 mg/dL LAB CHEMISTRY METHOD 02/07/2024 2:43 AM [facility] eGFR 79 >=60 mL/min/1. 73m2 LAB CHEMISTRY METHOD 02/07/2024 2:43 AM [facility] Comment:Calculation based on the Chronic Kidney Disease Epidemiology Collaboration (CKD-EPI) equation refit without adjustment for race. BUN/Creatinine Ratio 5.7 LAB CHEMISTRY METHOD 02/07/2024 2:43 AM [facility] Calcium 9.5 8.5 - 10.5 mg/dL LAB CHEMISTRY METHOD 02/07/2024 2:43 AM [facility] AST (SGOT) 67(H) 10 - 42 unit/L LAB CHEMISTRY METHOD 02/07/2024 2:43 AM [facility] Comment:Results verified by repeat testing ALT (SGPT) 99(H) 10 - 60 unit/L LAB CHEMISTRY METHOD 02/07/2024 2:43 AM [facility] Comment:Results verified by repeat testing Alkaline Phosphatase 72 42 - 121 unit/L LAB CHEMISTRY METHOD 02/07/2024 2:43 AM [facility] Total Protein 8.2(H) 6.0 - 8.0 g/dL LAB CHEMISTRY METHOD 02/07/2024 2:43 AM [facility] Albumin 4.3 3.2 - 5.0 g/dL LAB CHEMISTRY METHOD 02/07/2024 2:43 AM [facility] Total Bilirubin 0.6 0.0 - 1.4 mg/dL LAB CHEMISTRY METHOD 02/07/2024 2:43 AM EST [facility] Blood Venous blood specimen / Unknown Venipuncture / Unknown 02/07/2024 1:34 AM EST 02/07/2024 1:49 AM EST us Shaun Og MD LAB BLOOD ORDERABLES Final Resu lt [facility] [address] [place] [address], from Last 3 Months or Most Recently Relevant to Health Maintenance Insurance [employer] [address] [place] [address] Advance Directives * Full Code - Default [...] currently active code status orders. Care Teams Primary Care Nurse Practitioner Relationship Specialty Start Date End Date Physician, Pcp Unknown PCP - General 10/28/24
== END 2025-01-20 11:40 | disposition home or self-care (01) ==
LOC: HO.HCC 10:29
PROVIDERS: Visit Provider Clinical Nurse Specialist Psychiatric/Mental Health
DX: Z51.81 Encounter for therapeutic drug level monitoring (principal); F10.90 Alcohol use, unspecified, uncomplicated
CPT/HCPCS: 99203

== ENCOUNTER → 2025-01-20 10:29 | Outpatient (BNVA) | payer OTHER, SELFPAY | PROVIDERS: Visit Provider Clinical Nurse Specialist Psychiatric/Mental Health | DX: Z51.81 Encounter for therapeutic drug level monitoring (principal); F10.90 Alcohol use, unspecified, uncomplicated | CPT/HCPCS: 80307; 99202 ==